=== PATIENT | male | born 1975 | race Caucasian/White ===

== ENCOUNTER 2020-12-16 08:53 | Emergency (ER) | payer OTHER ==
[2020-12-16 09:00] VITALS: RESP 18; TEMP 97.5
[2020-12-16] MEDS ORDERED: KETOROLAC 15 MG/ML 1 ML VIAL IVP STA (09:14)
[2020-12-16] MEDS ORDERED: SODIUM CHLORIDE 0.9% 1,000 ML IV STA (09:14)
[2020-12-16] MEDS ORDERED: LABETALOL 5 MG/ML VIAL MDV IVP STA (09:29)
--- NOTE | 2020-12-16 09:29 | ED ---
General Adult HPI - General Chief complaint: Abdominal Pain Stated complaint: diverticulitis Time Seen by Provider: 12/16/20 09:00 Source: patient, RN notes reviewed, old records reviewed Mode of arrival: ambulatory Limitations: no limitations - History of Present Illness Initial comments: This is a 45-year-old male presents emergency Department complaining of right lower quadrant abdominal pain. Patient states this started last night. Patient states she's had this multiple times before and has turned out to be diverticulitis in the past. Patient denies any fever chills per patient denies any vomiting. Patient denies any diarrhea. Patient states in the past she's waited too long to come in and when he finally comes in he has diverticular pa tient has to be admitted to the hospital. Patient states this time except the very beginning so he wanted to come in and get some antibiotics early. Patient also states he has high blood pressure he has medication is supposed to take but he has not taken it and does not have a primary medical care doctor to follow-up with. - Related Data Previous Rx's Medication Instructions Recorded Ciprofloxacin HCl [Cipro] 500 mg PO Q12HR #20 tablet 12/16/20 Lisinopril [Zestril] 10 mg PO DAILY #30 tab 12/16/20 metroNIDAZOLE [Flagyl] 500 mg PO Q8HR #30 tab 12/16/20 Allergies Allergy/AdvReac Type Severity Reaction Status Date / Time codeine AdvReac Unknown Verified 12/16/20 09:57 Review of Systems ROS Statement: Those systems with pertinent positive or pertinent negative responses have been documented in the HPI. ROS Other: All systems not noted in ROS Statement are negative. Past Medical History Past Medical History: Hypertension Additional Past Medical History / Comment(s): diverticulosis History of Any Multi-Drug Resistant Organisms: None Reported Past Surgical History: No Surgical Hx Reported Past Psychological History: No Psychological Hx Reported Smoking Status: Current every day smoker Past Alcohol Use History: Occasional Past Drug Use History: None Reported General Exam - General Exam Comments Initial Comments: GENERAL: Patient is well-developed and well-nourished. Patient is nontoxic and well- hydrated and is in mild distress. ENT: Neck is soft and supple. No significant lymphadenopathy is noted. Oropharynx is clear. Moist mucous membranes. Neck has full range of motion without eliciting any pain. EYES: The sclera were anicteric and conjunctiva were pink and moist. Extraocular movements were intact and pupils were equal round and reactive to light. Eyelids were unremarkable. PULMONARY: Unlabored respirations. Good breath sounds bilaterally. No audible rales rhonchi or wheezing was noted. CARDIOVASCULAR: There is a regular rate and rhythm without any murmurs gallops or rubs. ABDOMEN: Mild right lower quadrant abdominal pain SKIN: Skin is clear with no lesions or rashes and otherwise unremarkable. NEUROLOGIC: Patient is alert and oriented x3. Cranial nerves II through XII are grossly intact. Motor and sensory are also intact. Normal speech, volume and content. Symmetrical smile. MUSCULOSKELETAL: Normal extremities with adequate strength and full range of motion. LYMPHATICS: No significant lymphadenopathy is noted PSYCHIATRIC: Normal psychiatric evaluation. Limitations: no limitations Course Vital Signs 12/16/20 12/16/20 12/16/20 08:57 09:47 10:05 Temperature 97.5 F L Pulse Rate 127 H 98 86 Respiratory 18 18 18 Rate Blood Pressure 161/114 164/105 136/91 O2 Sat by Pulse 99 99 99 Oximetry 12/16/20 11:17 Temperature Pulse Rate 88 Respiratory 18 Rate Blood Pressure 140/89 O2 Sat by Pulse 99 Oximetry Medical Decision Making - Medical Decision Making EKG shows sinus tachycardia at 106 bpm MN interval 240 QRS is 82 QT interval 336 QTC is 446. Patient's EKG shows no ST segment elevation or depression. Computed tomography scan of the abdomen and pelvis shows no signs of diverticulitis. Patient does have an elevated white count patient states this is the same feeling he had when he had previous diverticulitis episodes and Cipro and Flagyl have helped in the past. I will back into reevaluate the patient he continued to have pain but it was slightly improved. Patient is taking his high blood pressure medications and follow-up with a primary medical care doctor or route service manager. - Lab Data Result diagrams: 12/16/20 09:17 12/16/20 09:17 Lab Results 12/16/20 12/16/20 12/16/20 Range/Units 09:17 09:17 09: WBC 16.9 H (3.8-10.6) k/uL RBC 5.26 (4.30-5.90) m/uL Hgb 15.6 (13.0-17.5) gm/dL Hct 44.9 (39.0-53.0) % MCV 85.3 (80.0-100.0) fL MCH 29.7 (25.0-35.0) pg MCHC 34.8 (31.0-37.0) g/dL RDW 13.1 (11.5-15.5) % Plt Count 181 (150-450) k/uL MPV 8.6 Neutrophils % 71 % Lymphocytes % 20 % Monocytes % 6 % Eosinophils % 1 % Basophils % 1 % Neutrophils # 12.0 H (1.3-7.7) k/uL Lymphocytes # 3.4 (1.0-4.8) k/uL Monocytes # 1.1 H (0-1.0) k/uL Eosinophils # 0.1 (0-0.7) k/uL Basophils # 0.1 (0-0.2) k/uL Sodium 139 (137-145) mmol/L Potassium 4.4 (3.5-5.1) mmol/L Chloride 107 (98-107) mmol/L Carbon Dioxide 22 (22-30) mmol/L Anion Gap 10 mmol/L BUN 19 (9-20) mg/dL Creatinine 0.98 (0.66-1.25) mg/dL Est GFR (CKD-EPI)AfAm >90 (>60 ml/min/1.73 sqM) Est GFR (CKD-EPI)NonAf >90 (>60 ml/min/1.73 sqM) Glucose 101 H (74-99) mg/dL Plasma Lactic Acid [place] (0.7-2.0) mmol/L Calcium 9.6 (8.4-10.2) mg/dL Total Bilirubin 0.7 (0.2-1.3) mg/dL AST 46 (17-59) U/L ALT 33 (4-49) U/L Alkaline Phosphatase 56 (38-126) U/L Total Protein 7.7 (6.3-8.2) g/dL Albumin 4.7 (3.5-5.0) g/dL Amylase 45 (30-110) U/L Lipase 55 (23-300) U/L Urine Color Light Yellow Urine Appearance Clear (Clear) Urine pH 5.0 (5.0-8.0) Ur Specific [place] 1.012 (1.001-1.035) Urine Protein Negative (Negative) Urine Glucose (UA) Negative (Negative) Urine Ketones Negative (Negative) Urine Blood Negative (Negative) Urine Nitrite Negative (Negative) Urine Bilirubin Negative (Negative) Urine Urobilinogen <2.0 (<2.0) mg/dL Ur Leukocyte Esterase Negative (Negative) 12/16/20 Range/Units 09:17 WBC (3.8-10.6) k/uL RBC (4.30-5.90) m/uL Hgb (13.0-17.5) gm/dL Hct (39.0-53.0) % MCV (80.0-100.0) fL MCH (25.0-35.0) pg MCHC (31.0-37.0) g/dL RDW (11.5-15.5) % Plt Count (150-450) k/uL MPV Neutrophils % % Lymphocytes % % Monocytes % % Eosinophils % % Basophils % % Neutrophils # (1.3-7.7) k/uL Lymphocytes # (1.0-4.8) k/uL Monocytes # (0-1.0) k/uL Eosinophils # (0-0.7) k/uL Basophils # (0-0.2) k/uL Sodium (137-145) mmol/L Potassium (3.5-5.1) mmol/L Chloride (98-107) mmol/L Carbon Dioxide (22-30) mmol/L Anion Gap mmol/L BUN (9-20) mg/dL Creatinine (0.66-1.25) mg/dL Est GFR (CKD-EPI)AfAm (>60 ml/min/1.73 sqM) Est GFR (CKD-EPI)NonAf (>60 ml/min/1.73 sqM) Glucose (74-99) mg/dL Plasma Lactic Acid [place] 1.6 (0.7-2.0) mmol/L Calcium (8.4-10.2) mg/dL Total Bilirubin (0.2-1.3) mg/dL AST (17-59) U/L ALT (4-49) U/L Alkaline Phosphatase (38-126) U/L Total Protein (6.3-8.2) g/dL Albumin (3.5-5.0) g/dL Amylase (30-110) U/L Lipase (23-300) U/L Urine Color Urine Appearance (Clear) Urine pH (5.0-8.0) Ur Specific [place] (1.001-1.035) Urine Protein (Negative) Urine Glucose (UA) (Negative) Urine Ketones (Negative) Urine Blood (Negative) Urine Nitrite (Negative) Urine Bilirubin (Negative) Urine Urobilinogen (<2.0) mg/dL Ur Leukocyte Esterase (Negative) Disposition Clinical Impression: Hypertensive urgency, Abdominal pain Disposition: HOME SELF-CARE Instructions (If sedation given, give patient instructions): Abdominal Pain (ED), Hypertension (ED) Additional Instructions: Patient is felt the primary medical care doctor or a route service manager. Patient she returns as any further abdominal pain. Prescriptions: Ciprofloxacin HCl [Cipro] 500 mg PO Q12HR #20 tablet metroNIDAZOLE [Flagyl] 500 mg PO Q8HR #30 tab Lisinopril [Zestril] 10 mg PO DAILY #30 tab Is patient prescribed a controlled substance at d/c from ED?: No Referrals: None,Stated [Primary Care Provider] - 1-2 days Time of Disposition: 11:46
[2020-12-16 09:41] LABS: Basophils # (A) 0.1 k/uL (0-0.2); Basophils % (A) 1 %; Eosinophils # (A) 0.1 k/uL (0-0.7); Eosinophils % (A) 1 %; HCT 44.9 % (39.0-53.0); HGB 15.6 gm/dL (13.0-17.5); Lymphocytes # (A) 3.4 k/uL (1.0-4.8); Lymphocytes % (A) 20 %; MCH 29.7 pg (25.0-35.0); MCHC 34.8 g/dL (31.0-37.0); MCV 85.3 fL (80.0-100.0); Mean Platelet Volume 8.6; Monocytes # (A) 1.1 k/uL (0-1.0); Monocytes % (A) 6 %; Neutrophils % (A) 71 %; Platelet Count 181 k/uL (150-450); RBC 5.26 m/uL (4.30-5.90); RDW 13.1 % (11.5-15.5); WBC 16.9 k/uL (3.8-10.6)
[2020-12-16 09:43] LABS: Appearance,Urine Clear (Clear); Bilirubin,Urine Negative (Negative); Blood,Urine Negative (Negative); Color,Urine Light Yellow; Glucose,Urine (UA) Negative (Negative); Ketones,Urine Negative (Negative); Leukocyte Esterase,Urine Negative (Negative); Nitrite,Urine Negative (Negative); Protein,Urine Negative (Negative); Specific Gravity,Urine 1.012 (1.001-1.035); Urobilinogen,Urine <2.0 mg/dL (<2.0)
[2020-12-16 09:59] LABS: ALT 33 U/L (4-49); AST 46 U/L (17-59); African American GFR (CKD) >90 (>60 ml/min/1.73 sqM); Albumin 4.7 g/dL (3.5-5.0); Alkaline Phosphatase 56 U/L (38-126); Amylase 45 U/L (30-110); Anion Gap 10 mmol/L; Blood Urea Nitrogen 19 mg/dL (9-20); Calcium 9.6 mg/dL (8.4-10.2); Carbon Dioxide 22 mmol/L (22-30); Chloride 107 mmol/L (98-107); Glucose 101 mg/dL (74-99); Lipase 55 U/L (23-300); Non-African American GFR(CKD) >90 (>60 ml/min/1.73 sqM); Potassium 4.4 mmol/L (3.5-5.1); Sodium 139 mmol/L (137-145); Total Bilirubin 0.7 mg/dL (0.2-1.3); Total Protein 7.7 g/dL (6.3-8.2)
--- NOTE | 2020-12-16 11:04 | CT ---
EXAMINATION TYPE: CT abdomen pelvis w con DATE OF EXAM: 12/16/2020 COMPARISON: 10/24/2012 HISTORY: abdominal pain, diarrhea CT DLP: 885.7 mGycm Automated exposure control for dose reduction was used. TECHNIQUE: Helical acquisition of images was performed from the lung bases through the pelvis. CONTRAST: Performed without Oral Contrast and with IV Contrast, patient injected with 100 mL of Isovue 300. FINDINGS: Lung bases are clear. There is a tiny low-density lesion within the liver which most likely represents an hemangioma. The gallbladder is normal and there is no gallstone, wall thickening, distention, or pericholecystic fluid. There is no biliary ductal dilatation. The pancreas spleen and adrenal glands are normal. The kidneys excrete contrast promptly and symmetrically and there is no solid renal mass or hydroneph rosis. There is no retroperitoneal adenopathy or hemorrhage in the caliber of the abdominal aorta is normal. The bowel loops are normal in caliber and there is no evidence of obstruction. There is diffuse diver ticulosis without CT evidence of diverticulitis. The wall the sigmoid colon appears thickened and thi s was an area of prior diverticulitis seen on the prior study dating back to 2012. There is no eviden ce of acute diverticulitis currently. There is no free intraperitoneal air or fluid. There is no pelvic mass, free fluid or adenopathy. The osseous structures are intact. IMPRESSION: Sigmoid colon wall appears thickened and there is diffuse diverticulosis. There is no evidence of acu te diverticulitis. Acute diverticulitis was seen in the sigmoid colon on the prior study dated 013. Currently, there is no acute intra-abdominal or pelvic abnormality.
[2020-12-16 11:53] VITALS: BP 133/87; PULSE 81
== END 2020-12-16 12:08 | disposition home or self-care (01) ==
LOC: EC 08:53
DX: I16.0 Hypertensive urgency (principal); R10.31 Right lower quadrant pain; I10 Essential (primary) hypertension; F17.200 Nicotine dependence, unspecified, uncomplicated; Z87.19 Personal history of other diseases of the digestive system
CPT/HCPCS: 36415; 93005; 80053; 82150; 83605; 83690; 85025; 81003; 74177; 99284; 96374; 96375; 96361 ×2; J1885; Q9967

== ENCOUNTER 2021-03-07 09:59 | Inpatient (IN) | payer BC, OTHER ==
[2021-03-07] MEDS ORDERED: PANTOPRAZOLE 40 MG/10 ML VIAL IVP STA (10:24)
[2021-03-07] MEDS ORDERED: SODIUM CHLORIDE 0.9% 1,000 ML IV STA (10:24)
[2021-03-07] MEDS ORDERED: HYDROmorphone 1 MG/ML 1 ML SYRINGE IVP STA (10:25)
--- NOTE | 2021-03-07 10:27 | ED ---
General Adult HPI - General Chief complaint: Abdominal Pain Stated complaint: abd pain Time Seen by Provider: 03/07/21 10:17 Source: patient, RN notes reviewed Mode of arrival: ambulatory Limitations: no limitations - History of Present Illness Initial comments: Patient is a pleasant 45-year-old male presenting to the emergency department with lower abdominal discomfort. Onset of symptoms was last night. Symptoms were mild last night however starting to become more severe this morning. No constipation or diarrhea. No nausea vomiting. No fevers. Patient does have history of similar symptoms previously associated with diverticulitis and previo usly has been hospitalized twice for this. Discomfort is mostly mid lower abdomen and left lower abdomen. Discomfort does increase with movement - Related Data Previous Rx's Medication Instructions Recorded Ciprofloxacin HCl [Cipro] 500 mg PO Q12HR #20 tablet 12/16/20 Lisinopril [Zestril] 10 mg PO DAILY #30 tab 12/16/20 metroNIDAZOLE [Flagyl] 500 mg PO Q8HR #30 tab 12/16/20 Allergies Allergy/AdvReac Type Severity Reaction Status Date / Time codeine Allergy Unknown Verified 03/07/21 10:50 Review of Systems ROS Statement: Those systems with pertinent positive or pertinent negative responses have been documented in the HPI. ROS Other: All systems not noted in ROS Statement are negative. Constitutional: Denies: fever Eyes: Denies: eye pain ENT: Denies: ear pain Respiratory: Denies: cough Cardiovascular: Denies: chest pain Endocrine: Denies: fatigue Gastrointestinal: Reports: as per HPI, abdominal pain. Denies: nausea, vomiting Genitourinary: Denies: dysuria Musculoskeletal: Denies: back pain Skin: Denies: rash Neurological: Denies: weakness Past Medical History Past Medical History: Hypertension Additional Past Medical History / Comment(s): diverticulosis History of Any Multi-Drug Resistant Organisms: None Reported Past Surgical History: No Surgical Hx Reported Past Psychological History: No Psychological Hx Reported Smoking Status: Current every day smoker Past Alcohol Use History: Occasional Past Drug Use History: None Reported General Exam Limitations: no limitations General appearance: alert, in no apparent distress Head exam: Present: normocephalic Eye exam: Present: normal appearance Neck exam: Present: normal inspection Respiratory exam: Present: normal lung sounds bilaterally Cardiovascular Exam: Present: regular rate, normal rhythm Expanded Peripheral pulses: 2+: Dorsalis Pedis (R), Dorsalis Pedis (L) GI/Abdominal exam: Present: soft, tenderness (Moderate superpubic tenderness, mild left lower quadrant tenderness), normal bowel sounds. Absent: distended, guarding, rebound, rigid, pulsatile mass Extremities exam: Present: normal inspection Neurological exam: Present: alert Psychiatric exam: Present: normal affect, normal mood Skin exam: Present: normal color Course Vital Signs 03/07/21 03/07/21 03/07/21 10:11 10:15 11:15 Temperature 98.4 F Pulse Rate 88 Respiratory 18 18 18 Rate Blood Pressure 123/87 O2 Sat by Pulse 96 Oximetry 03/07/21 12:00 Temperature Pulse Rate Respiratory 18 Rate Blood Pressure O2 Sat by Pulse Oximetry Medical Decision Making - Medical Decision Making Patient reevaluated and updated. Dr. Tejada has been paged for admission covering Dr. jose. Case was discussed with Dr. Simpson, who will admit. - Lab Data Result diagrams: 03/07/21 10:35 03/07/21 10:35 Lab Results 03/07/21 03/07/21 03/07/21 Range/Units 10:35 10:35 10:35 WBC 17.6 H (3.8-10.6) k/uL RBC 4.86 (4.30-5.90) m/uL Hgb 14.7 (13.0-17.5) gm/dL Hct 42.5 (39.0-53.0) % MCV 87.5 (80.0-100.0) fL MCH 30.2 (25.0-35.0) pg MCHC 34.5 (31.0-37.0) g/dL RDW 13.1 (11.5-15.5) % Plt Count 227 (150-450) k/uL MPV 9.1 Neutrophils % 74 % Lymphocytes % 16 % Monocytes % 7 % Eosinophils % 1 % Basophils % 1 % Neutrophils # 13.0 H (1.3-7.7) k/uL Lymphocytes # 2.9 (1.0-4.8) k/uL Monocytes # 1.3 H (0-1.0) k/uL Eosinophils # 0.1 (0-0.7) k/uL Basophils # 0.1 (0-0.2) k/uL PT 9.9 (9.0-12.0) sec INR 0.9 (<1.2) APTT 22.5 (22.0-30.0) sec Sodium (137-145) mmol/L Potassium (3.5-5.1) mmol/L Chloride (98-107) mmol/L Carbon Dioxide (22-30) mmol/L Anion Gap mmol/L BUN (9-20) mg/dL Creatinine (0.66-1.25) mg/dL Est GFR (CKD-EPI)AfAm (>60 ml/min/1.73 sqM) Est GFR (CKD-EPI)NonAf (>60 ml/min/1.73 sqM) Glucose (74-99) mg/dL Calcium (8.4-10.2) mg/dL Total Bilirubin (0.2-1.3) mg/dL AST (17-59) U/L ALT (4-49) U/L Alkaline Phosphatase (38-126) U/L Total Protein (6.3-8.2) g/dL Albumin (3.5-5.0) g/dL Amylase (30-110) U/L Lipase (23-300) U/L Urine Color Yellow Urine Appearance Clear (Clear) Urine pH 5.5 (5.0-8.0) Ur Specific [place] 1.016 (1.001-1.035) Urine Protein Negative (Negative) Urine Glucose (UA) Negative (Negative) Urine Ketones Trace H (Negative) Urine Blood Negative (Negative) Urine Nitrite Negative (Negative) Urine Bilirubin Negative (Negative) Urine Urobilinogen <2.0 (<2.0) mg/dL Ur Leukocyte Esterase Trace H (Negative) Urine RBC 1 (0-5) /hpf Urine WBC <1 (0-5) /hpf Urine Mucus Rare H (None) /hpf 03/07/21 Range/Units 10:35 WBC (3.8-10.6) k/uL RBC (4.30-5.90) m/uL Hgb (13.0-17.5) gm/dL Hct (39.0-53.0) % MCV (80.0-100.0) fL MCH (25.0-35.0) pg MCHC (31.0-37.0) g/dL RDW (11.5-15.5) % Plt Count (150-450) k/uL MPV Neutrophils % % Lymphocytes % % Monocytes % % Eosinophils % % Basophils % % Neutrophils # (1.3-7.7) k/uL Lymphocytes # (1.0-4.8) k/uL Monocytes # (0-1.0) k/uL Eosinophils # (0-0.7) k/uL Basophils # (0-0.2) k/uL PT (9.0-12.0) sec INR (<1.2) APTT (22.0-30.0) sec Sodium 138 (137-145) mmol/L Potassium 4.4 (3.5-5.1) mmol/L Chloride 105 (98-107) mmol/L Carbon Dioxide 25 (22-30) mmol/L Anion Gap 8 mmol/L BUN 15 (9-20) mg/dL Creatinine 0.83 (0.66-1.25) mg/dL Est GFR (CKD-EPI)AfAm >90 (>60 ml/min/1.73 sqM) Est GFR (CKD-EPI)NonAf >90 (>60 ml/min/1.73 sqM) Glucose 98 (74-99) mg/dL Calcium 9.6 (8.4-10.2) mg/dL Total Bilirubin 0.7 (0.2-1.3) mg/dL AST 25 (17-59) U/L ALT 19 (4-49) U/L Alkaline Phosphatase 54 (38-126) U/L Total Protein 6.9 (6.3-8.2) g/dL Albumin 4.2 (3.5-5.0) g/dL Amylase 41 (30-110) U/L Lipase 37 (23-300) U/L Urine Color Urine Appearance (Clear) Urine pH (5.0-8.0) Ur Specific [place] (1.001-1.035) Urine Protein (Negative) Urine Glucose (UA) (Negative) Urine Ketones (Negative) Urine Blood (Negative) Urine Nitrite (Negative) Urine Bilirubin (Negative) Urine Urobilinogen (<2.0) mg/dL Ur Leukocyte Esterase (Negative) Urine RBC (0-5) /hpf Urine WBC (0-5) /hpf Urine Mucus (None) /hpf - Radiology Data Radiology results: report reviewed (CT abdomen and pelvis shows moderate to severe yet uncomplicated diverticulitis) Disposition Clinical Impression: Diverticulitis Disposition: ADMITTED IP TO THIS HOSP Is patient prescribed a controlled substance at d/c from ED?: No Referrals: Elda Jose MD [Primary Care Provider] - 1-2 days Decision Time: 12:08
[2021-03-07 11:03] LABS: ALT 19 U/L (4-49); AST 25 U/L (17-59); African American GFR (CKD) >90 (>60 ml/min/1.73 sqM); Albumin 4.2 g/dL (3.5-5.0); Alkaline Phosphatase 54 U/L (38-126); Amylase 41 U/L (30-110); Anion Gap 8 mmol/L; Blood Urea Nitrogen 15 mg/dL (9-20); Calcium 9.6 mg/dL (8.4-10.2); Carbon Dioxide 25 mmol/L (22-30); Chloride 105 mmol/L (98-107); Glucose 98 mg/dL (74-99); Lipase 37 U/L (23-300); Non-African American GFR(CKD) >90 (>60 ml/min/1.73 sqM); Potassium 4.4 mmol/L (3.5-5.1); Sodium 138 mmol/L (137-145); Total Bilirubin 0.7 mg/dL (0.2-1.3); Total Protein 6.9 g/dL (6.3-8.2)
[2021-03-07 11:11] LABS: Appearance,Urine Clear (Clear); Bilirubin,Urine Negative (Negative); Blood,Urine Negative (Negative); Color,Urine Yellow; Glucose,Urine (UA) Negative (Negative); Ketones,Urine Trace (Negative); Leukocyte Esterase,Urine Trace (Negative); Mucus,Urine Rare /hpf; Nitrite,Urine Negative (Negative); PH, Urine 5.5 (5.0-8.0); Protein,Urine Negative (Negative); RBC,Urine 1 /hpf (0-5); Specific Gravity,Urine 1.016 (1.001-1.035); Urobilinogen,Urine <2.0 mg/dL (<2.0); WBC,Urine <1 /hpf (0-5)
[2021-03-07 11:13] LABS: INR 0.9 (<1.2); Partial Thromboplastin Time 22.5 sec (22.0-30.0); Prothrombin Time 9.9 sec (9.0-12.0)
[2021-03-07 11:15] LABS: Basophils # (A) 0.1 k/uL (0-0.2); Basophils % (A) 1 %; Eosinophils # (A) 0.1 k/uL (0-0.7); Eosinophils % (A) 1 %; HCT 42.5 % (39.0-53.0); HGB 14.7 gm/dL (13.0-17.5); Lymphocytes # (A) 2.9 k/uL (1.0-4.8); Lymphocytes % (A) 16 %; MCH 30.2 pg (25.0-35.0); MCHC 34.5 g/dL (31.0-37.0); MCV 87.5 fL (80.0-100.0); Mean Platelet Volume 9.1; Monocytes # (A) 1.3 k/uL (0-1.0); Monocytes % (A) 7 %; Neutrophils % (A) 74 %; Platelet Count 227 k/uL (150-450); RBC 4.86 m/uL (4.30-5.90); RDW 13.1 % (11.5-15.5); WBC 17.6 k/uL (3.8-10.6)
--- NOTE | 2021-03-07 11:54 | CT ---
EXAMINATION TYPE: CT abdomen pelvis w con DATE OF EXAM: 03/07/2021 COMPARISON: CT abdomen and pelvis December 16, 2020 and older study 2012 HISTORY: Abdominal pain CT DLP: 869.8 mGycm, Automated Exposure Control for Dose Reduction was Utilized. CONTRAST: CT scan of the abdomen and pelvis is performed without oral and with IV Contrast, patient injected wi th 100 mL of Isovue 300. FINDINGS: LUNG BASES: Dependent atelectasis. LIVER/GB: No significant abnormality is appreciated. PANCREAS: No significant abnormality is seen. SPLEEN: No significant abnormality is seen. ADRENALS: No significant abnormality is seen. KIDNEYS: No significant abnormality is seen. BOWEL: Slightly suboptimal evaluation of bowel without enteric contrast. No suspicious small or large bowel dilatation. Mild/moderate colonic fecal prominence right and transverse colon. Mild to moderat e wall thickening in the left colon extending into the sigmoid colon where there is more moderate wal l thickening proximal to mid segment. There are diverticula in the sigmoid colon. There is moderate i ll-defined fluid and fat stranding in the upper to mid pelvis just left of midline at site of diverti cular disease and moderate to severe wall thickening on current study. No free air. No well-formed fl uid collection or drainable abscess. PROSTATE/SEMINAL VESICLES: No gross abnormality seen. LYMPH NODES: No greater than 1cm abdominal or pelvic lymph nodes are appreciated. OSSEOUS STRUCTURES: No significant abnormality is seen. OTHER: No significant additional abnormality is seen. IMPRESSION: Fairly moderate to borderline severe but uncomplicated acute diverticulitis involving the proximal to mid sigmoid colon over the mid pelvis just left of midline.
[2021-03-07] MEDS ORDERED: NALOXONE 0.4 MG/ML 1 ML VIAL IV PRN (12:11)
[2021-03-07] MEDS ORDERED: HYDROmorphone 1 MG/ML 1 ML SYRINGE IVP PRN (12:11)
[2021-03-07] MEDS ORDERED: AMPICILLIN-SULBACTAM 3 GM in SODIUM CHLORIDE 0.9% 100 ML IVPB STA (12:13)
[2021-03-07] MEDS ORDERED: hydrALAZINE HCL 20 MG/ML 1 ML VIAL IVP PRN (12:43)
--- NOTE | 2021-03-07 12:44 | P.HPIM ---
History of Present Illness This is a pleasant 45 years old male with past medical history of hypertension, diverticulosis and diverticulitis. Presents with abdominal pain since yesterday in the lower abdomen felt likely that comes and goes about 8/10 in severity, non-radiating. Associated with some loose bowel movement, twice yesterday, but no vomiting or fever Afebrile on admission some vitals are stable. He has mild leukocytosis at 17.6 K rest of the CBC, BMP, INR and liver enzymes are unremarkable. Urinalysis is negative for infection CT of the abdomen and pelvis with contrast showing moderate borderline severe but and complicated acute diverticulitis involving the proximal to mid sigmoid colon over the mid pelvis just left of midline In the emergency room patient was started on Unasyn, Dilaudid and normal saline at 75 mL/h Review of Systems CONSTITUTIONAL: No fever, no malaise, no fatigue. HEENT: No recent visual problems or hearing problems. Denied any sore throat. CARDIOVASCULAR: No orthopnea, PND, no palpitations, no syncope. PULMONARY: No shortness of breath, no cough, no hemoptysis. GASTROINTESTINAL: no nausea, no vomiting, Normoactive bowel sounds. NEUROLOGICAL: No headaches, no weakness, no numbness. HEMATOLOGICAL: Denies any bleeding or petechiae. GENITOURINARY: Denies any burning micturition, frequency, or urgency. MUSCULOSKELETAL/RHEUMATOLOGICAL: Denies any joint pain, swelling, or any muscle pain. ENDOCRINE: Denies any polyuria or polydipsia. Past Medical History Past Medical History: Hypertension Additional Past Medical History / Comment(s): diverticulosis History of Any Multi-Drug Resistant Organisms: None Reported Past Surgical History: No Surgical Hx Reported Past Psychological History: No Psychological Hx Reported Smoking Status: Current every day smoker Past Alcohol Use History: Occasional Past Drug Use History: None Reported Medications and Allergies Home Medications Medication Instructions Recorded Confirmed Type Ciprofloxacin HCl [Cipro] 500 mg PO Q12HR #20 tablet 12/16/20 03/07/21 Rx Lisinopril [Zestril] 10 mg PO DAILY #30 tab 12/16/20 03/07/21 Rx metroNIDAZOLE [Flagyl] 500 mg PO Q8HR #30 tab 12/16/20 03/07/21 Rx Allergies Allergy/AdvReac Type Severity Reaction Status Date / Time codeine Allergy Unknown Verified 03/07/21 10:50 Physical Exam Vitals: Vital Signs Temp Pulse Resp BP Pulse Ox 03/07/21 12:00 18 03/07/21 11:15 18 03/07/21 10:15 18 03/07/21 10:11 98.4 F 88 18 123/87 96 Intake and Output 03/06/21 03/07/21 03/07/21 22:59 06:59 14:59 Other: Weight 81.647 kg GENERAL: The patient is alert and oriented x3, not in any acute distress. Well developed, well nourished. HEENT: Pupils are round and equally reacting to light. EOMI. No scleral icterus. No conjunctival pallor. Normocephalic, atraumatic. No pharyngeal erythema. No thyromegaly. CARDIOVASCULAR: S1 and S2 present. No murmurs, rubs, or gallops. PULMONARY: Chest is clear to auscultation, no wheezing or crackles. -ABDOMEN: Soft, bilateral lower quadrant tenderness, more on the right side,nondistended, normoactive bowel sounds. No palpable organomegaly. MUSCULOSKELETAL: No joint swelling or deformity. EXTREMITIES: No cyanosis, clubbing, or pedal edema. NEUROLOGICAL: Gross neurological examination did not reveal any focal deficits. SKIN: No rashes. No petechiae Results CBC & Chem 7: 03/07/21 10:35 03/07/21 10:35 Labs: Abnormal Lab Results - Last 24 Hours (Table) 03/07/21 03/07/21 Range/Units 10:35 10:35 WBC 17.6 H (3.8-10.6) k/uL Neutrophils # 13.0 H (1.3-7.7) k/uL Monocytes # 1.3 H (0-1.0) k/uL Urine Ketones Trace H (Negative) Ur Leukocyte Esterase Trace H (Negative) Urine Mucus Rare H (None) /hpf Assessment and Plan Assessment: Moderate To severe Acute diverticulitis Nicotine dependence Mild alcohol abuse at-risk of alcohol withdrawal Hypertension Plan: This is a pleasant 45 years old male who presents with recurrent diverticulitis. Continue with antibiotic . We'll change his Unasyn to Zosyn bowel rest and IV fluids and pain medication Surgical team consult [place]-less than when necessary Labs and medication were reviewed.. Continue same treatment. Continue with symptomatic treatment. Resume home medication. Monitor lytes and vitals. DVT and GI prophylaxis. Further recommendations depends on the clinical course of the patient DVT prophylaxis: Subcutaneous heparin GI Prophylaxis: Pepcid Prognosis is guarded
[2021-03-07] MEDS: SODIUM CHLORIDE 0.9% 1,000 ML IV SCH (13:33)
--- NOTE | 2021-03-07 15:26 | P.GSCN ---
History of Present Illness Consult date: 03/07/21 History of present illness: CHIEF COMPLAINT: Abdominal pain HISTORY OF PRESENT ILLNESS: This is a 45-year-old male with a known history of diverticulosis, hypertension and nicotine dependence. Patient presents to the hospital for left lower quadrant abdominal pain. His symptoms started last night. His symptoms continued to worsen and became severe this morning. He denies any constipation or diarrhea. Denies any nausea or vomiting. Denies any fevers. Patient has had similar symptoms previously with diverticulitis and had required hospitalization twice. Patient seen and examined in ER with Dr. man. PAST MEDICAL HISTORY: See list. PAST SURGICAL HISTORY: See list. MEDICATIONS: See list. ALLERGIES: See list. SOCIAL HISTORY: No illicit drug use. REVIEW OF SYSTEMS: CONSTITUTIONAL: Denies fever or chills. HEENT: Denies blurred vision, vision changes, or eye pain. Denies hemoptysis CARDIOVASCULAR: Denies chest pain or pressure. RESPIRATORY: No shortness of breath. GASTROINTESTINAL: See HPI for pertinent findings HEMATOLOGIC: Denies bleeding disorders. GENITOURINARY: Denies any blood in urine or increased urinary frequency. SKIN: Denies pruitis. Denies rash. PHYSICAL EXAM: VITAL SIGNS: Reviewed GENERAL: Well-developed in no acute distress. HEENT: No sclera icterus. Extraocular movements grossly intact. Moist buccal mucosa. Head is atraumatic, normocephalic. No nasal drainage. ABDOMEN: Soft. Nondistended. Left lower quadrant tenderness NEUROLOGIC: Alert and oriented. Cranial nerves II through XII grossly intact. LABORATORY DATA: WBC 17.16 1114.7 INR 0.9 creatinine 0.83 IMAGING: Computed tomography scan abdomen and pelvis fairly moderate to borderline severe but uncomplicated acute diverticulitis involving the proximal to sigmoid colon over the mid pelvis just left to midline ASSESSMENT: 1. Moderate to severe uncomplicated acute diverticulitis involving the proximal to mid sigmoid colon PLAN: -Keep patient nothing by mouth -Continue antibiotics -Recommend conservative management -No surgical intervention planned at this time -Continue pain medication as needed -Continue GI and DVT prophylaxis Physician Logging Worker note has been reviewed by physician. Signing provider agrees with the documented findings, assessment, and plan of care. Past Medical History Past Medical History: Hypertension Additional Past Medical History / Comment(s): diverticulosis History of Any Multi-Drug Resistant Organisms: None Reported Past Surgical History: No Surgical Hx Reported Past Psychological History: No Psychological Hx Reported Smoking Status: Current every day smoker Past Alcohol Use History: Occasional Past Drug Use History: None Reported Medications and Allergies Home Medications Medication Instructions Recorded Confirmed Type Ciprofloxacin HCl [Cipro] 500 mg PO Q12HR #20 tablet 12/16/20 03/07/21 Rx Lisinopril [Zestril] 10 mg PO DAILY #30 tab 12/16/20 03/07/21 Rx metroNIDAZOLE [Flagyl] 500 mg PO Q8HR #30 tab 12/16/20 03/07/21 Rx Allergies Allergy/AdvReac Type Severity Reaction Status Date / Time codeine Allergy Unknown Verified 03/07/21 10:50 Surgical - Exam Vital Signs Temp Pulse Resp BP Pulse Ox 98.4 F 88 18 123/87 96 03/07/21 10:11 03/07/21 10:11 03/07/21 10:11 03/07/21 10:11 03/07/21 10:11 Results - Labs 03/07/21 10:35 03/07/21 10:35 Abnormal Lab Results - Last 24 Hours (Table) 03/07/21 03/07/21 Range/Units 10:35 10:35 WBC 17.6 H (3.8-10.6) k/uL Neutrophils # 13.0 H (1.3-7.7) k/uL Monocytes # 1.3 H (0-1.0) k/uL Urine Ketones Trace H (Negative) Ur Leukocyte Esterase Trace H (Negative) Urine Mucus Rare H (None) /hpf Diabetes panel 03/07/21 Range/Units 10:35 Sodium 138 (137-145) mmol/L Potassium 4.4 (3.5-5.1) mmol/L Chloride 105 (98-107) mmol/L Carbon Dioxide 25 (22-30) mmol/L BUN 15 (9-20) mg/dL Creatinine 0.83 (0.66-1.25) mg/dL Glucose 98 (74-99) mg/dL Calcium 9.6 (8.4-10.2) mg/dL AST 25 (17-59) U/L ALT 19 (4-49) U/L Alkaline Phosphatase 54 (38-126) U/L Total Protein 6.9 (6.3-8.2) g/dL Albumin 4.2 (3.5-5.0) g/dL Calcium panel 03/07/21 Range/Units 10:35 Calcium 9.6 (8.4-10.2) mg/dL Albumin 4.2 (3.5-5.0) g/dL Pituitary panel 03/07/21 Range/Units 10:35 Sodium 138 (137-145) mmol/L Potassium 4.4 (3.5-5.1) mmol/L Chloride 105 (98-107) mmol/L Carbon Dioxide 25 (22-30) mmol/L BUN 15 (9-20) mg/dL Creatinine 0.83 (0.66-1.25) mg/dL Glucose 98 (74-99) mg/dL Calcium 9.6 (8.4-10.2) mg/dL Adrenal panel 03/07/21 Range/Units 10:35 Sodium 138 (137-145) mmol/L Potassium 4.4 (3.5-5.1) mmol/L Chloride 105 (98-107) mmol/L Carbon Dioxide 25 (22-30) mmol/L BUN 15 (9-20) mg/dL Creatinine 0.83 (0.66-1.25) mg/dL Glucose 98 (74-99) mg/dL Calcium 9.6 (8.4-10.2) mg/dL Total Bilirubin 0.7 (0.2-1.3) mg/dL AST 25 (17-59) U/L ALT 19 (4-49) U/L Alkaline Phosphatase 54 (38-126) U/L Total Protein 6.9 (6.3-8.2) g/dL Albumin 4.2 (3.5-5.0) g/dL
[2021-03-07] MEDS: PIPERACILLIN-TAZOBACTAM 3.375 GM in SODIUM CHLORIDE 0.9% 100 ML IVPB SCH (16:37)
[2021-03-07] MEDS: HYDROmorphone 0.5 MG/0.5 ML SYRINGE IVP PRN ×2 (16:44→19:47)
[2021-03-07] MEDS ORDERED: AMPICILLIN-SULBACTAM 1.5 GM in SODIUM CHLORIDE 0.9% 50 ML IVPB SCH (18:00)
[2021-03-07] MEDS: FAMOTIDINE 20 MG/2 ML VIAL IV SCH (21:54)
[2021-03-07] MEDS: HEPARIN SODIUM,PORCINE/PF 5,000 UNIT/0.5 ML SYRINGE SQ SCH (21:59)
[2021-03-08] MEDS: PIPERACILLIN-TAZOBACTAM 3.375 GM in SODIUM CHLORIDE 0.9% 100 ML IVPB SCH ×3 (00:24→16:23)
[2021-03-08] MEDS: SODIUM CHLORIDE 0.9% 1,000 ML IV SCH ×2 (00:25→16:22)
[2021-03-08] MEDS: HYDROmorphone 0.5 MG/0.5 ML SYRINGE IVP PRN ×4 (00:33→19:33)
[2021-03-08] MEDS: PANTOPRAZOLE 40 MG/10 ML VIAL IV SCH (09:29)
[2021-03-08] MEDS: FAMOTIDINE 20 MG/2 ML VIAL IV SCH ×2 (09:30→20:34)
[2021-03-08] MEDS: HEPARIN SODIUM,PORCINE/PF 5,000 UNIT/0.5 ML SYRINGE SQ SCH ×2 (09:38→19:32)
[2021-03-08 10:01] LABS: Basophils # (A) 0.06 X 10*3/uL (0.00-0.10); Basophils % (A) 0.6 %; Eosinophils # (A) 0.16 X 10*3/uL (0.04-0.35); Eosinophils % (A) 1.6 %; HCT 40.6 % (39.6-50.0); HGB 13.5 g/dL (13.0-17.0); Lymphocytes # (A) 3.13 X 10*3/uL (0.90-5.00); Lymphocytes % (A) 30.4 %; MCH 30.1 pg (27.0-32.0); MCHC 33.3 g/dL (32.0-37.0); MCV 90.4 fL (80.0-97.0); Mean Platelet Volume 11.8 fL (9.5-12.2); Monocytes # (A) 0.84 X 10*3/uL (0.20-1.00); Monocytes % (A) 8.2 %; Neutrophils # (A) 6.06 X 10*3/uL (1.80-7.70); Neutrophils % (A) 58.8 %; Platelet Count 206 X 10*3/uL (140-440); RBC 4.49 X 10*6/uL (4.40-5.60); RDW 13.4 % (11.5-14.5); WBC 10.29 X 10*3/uL (4.50-10.00)
[2021-03-08 10:47] LABS: African American GFR (CKD) 105.6 (60.0-200.0); Anion Gap 10.7 mmol/L (4.00-12.00); Calcium 8.9 mg/dL (8.7-10.3); Carbon Dioxide 26.3 mmol/L (21.6-31.8); Non-African American GFR(CKD) 91.1 (60.0-200.0); Potassium 4.1 mmol/L (3.5-5.5)
--- NOTE | 2021-03-08 12:51 | P.PN ---
Subjective Progress Note Date: 03/08/21 CHIEF COMPLAINT: Diverticulitis HISTORY OF PRESENT ILLNESS: Patient reports decrease in his abdominal pain. His pain yesterday he was rating a 9 out of 10 is now down to 2 out of 10. He is passing gas. Denies any nausea vomiting. He is currently nothing by mouth. His afebrile. White count has decreased from 17-10.29 PHYSICAL EXAM: VITAL SIGNS: Reviewed. GENERAL: Well-developed in no acute distress. HEENT: No sclera icterus. Extraocular movements grossly intact. Moist buccal mucosa. Head is atraumatic, normocephalic. ABDOMEN: Soft. Nondistended. Tenderness with palpation of the lower abdomen NEUROLOGIC: Alert and oriented. Cranial nerves II through XII grossly intact. ASSESSMENT: 1. Moderate to severe uncomplicated acute diverticulitis involving the proximal to mid sigmoid colon PLAN: -Advance diet to full liquids -Possible discharge home tomorrow -Continue antibiotics -Recommend conservative management -No surgical intervention planned -Continue pain medication as needed -Continue GI and DVT prophylaxis Physician National Flatbed Truck Driver note has been reviewed by physician. Signing provider agrees with the documented findings, assessment, and plan of care. Objective - Vital Signs Vital signs: Vital Signs Temp 98.2 F 03/08/21 08:13 Pulse 79 03/08/21 08:13 Resp 16 03/08/21 08:13 BP 98/63 03/08/21 08:13 Pulse Ox 94 L 03/08/21 08:13 Intake & Output 03/07/21 03/08/21 03/08/21 18:59 06:59 18:59 Weight 81.647 kg 81.647 kg Other: Voiding Method Toilet Toilet # Voids 1 - Labs CBC & Chem 7: 03/08/21 05:24 03/08/21 05:24 Labs: Abnormal Lab Results - Last 24 Hours (Table) 03/08/21 Range/Units 05:24 WBC 10.29 H (4.50-10.00) X 10*3/uL
--- NOTE | 2021-03-08 20:13 | P.PN ---
Subjective This is a pleasant 45 years old male with past medical history of hypertension, diverticulosis and diverticulitis. Presents with abdominal pain since yesterday in the lower abdomen felt likely that comes and goes about 8/10 in severity, non-radiating. Associated with some loose bowel movement, twice yesterday, but no vomiting or fever Afebrile on admission some vitals are stable. He has mild leukocytosis at 17.6 K rest of the CBC, BMP, INR and liver enzymes are unremarkable. Urinalysis is negative for infection CT of the abdomen and pelvis with contrast showing moderate borderline severe but and complicated acute diverticulitis involving the proximal to mid sigmoid colon over the mid pelvis just left of midline In the emergency room patient was started on Unasyn, Dilaudid and normal saline at 75 mL/h Objective - Vital Signs Vital signs: Vital Signs Temp 97.6 F 03/08/21 14:00 Pulse 74 03/08/21 14:00 Resp 16 03/08/21 14:00 BP 102/62 03/08/21 14:00 Pulse Ox 97 03/08/21 14:00 Intake & Output 03/07/21 03/08/21 03/08/21 18:59 06:59 18:59 Weight 81.647 kg 81.647 kg Other: Voiding Method Toilet Toilet # Voids 1 - Exam GENERAL: The patient is alert and oriented x3, not in any acute distress. Well developed, well nourished. HEENT: Pupils are round and equally reacting to light. EOMI. No scleral icterus. No conjunctival pallor. Normocephalic, atraumatic. No pharyngeal erythema. No thyromegaly. CARDIOVASCULAR: S1 and S2 present. No murmurs, rubs, or gallops. PULMONARY: Chest is clear to auscultation, no wheezing or crackles. -ABDOMEN: Soft, mild lower abdominal tenderness, nondistended, normoactive bowel sounds. No palpable organomegaly. MUSCULOSKELETAL: No joint swelling or deformity. EXTREMITIES: No cyanosis, clubbing, or pedal edema. NEUROLOGICAL: Gross neurological examination did not reveal any focal deficits. SKIN: No rashes. no petechiae. - Labs CBC & Chem 7: 03/08/21 05:24 03/08/21 05:24 Labs: Abnormal Lab Results - Last 24 Hours (Table) 03/08/21 Range/Units 05:24 WBC 10.29 H (4.50-10.00) X 10*3/uL Assessment and Plan Assessment: Moderate To severe Acute diverticulitis Nicotine dependence Mild alcohol abuse at-risk of alcohol withdrawal Hypertension Plan: This is a pleasant 45 years old male who presents with recurrent diverticulitis. Continue with antibiotic . We'll change his Unasyn to Zosyn bowel rest and IV fluids and pain medication Surgical team consult Advance diet to liquids diet Labs and medication were reviewed.. Continue same treatment. Continue with symptomatic treatment. Resume home medication. Monitor lytes and vitals. DVT and GI prophylaxis. Further recommendations depends on the clinical course of the patient DVT prophylaxis: Subcutaneous heparin GI Prophylaxis: Pepcid
[2021-03-09] MEDS: HYDROmorphone 0.5 MG/0.5 ML SYRINGE IVP PRN ×2 (00:59→08:00)
[2021-03-09] MEDS: PIPERACILLIN-TAZOBACTAM 3.375 GM in SODIUM CHLORIDE 0.9% 100 ML IVPB SCH ×2 (00:59→08:00)
[2021-03-09] MEDS: SODIUM CHLORIDE 0.9% 1,000 ML IV SCH (05:41)
[2021-03-09 07:33] VITALS: BP 147/81; PULSE 48; RESP 18; TEMP 98.1
[2021-03-09] MEDS: FAMOTIDINE 20 MG/2 ML VIAL IV SCH (08:00)
[2021-03-09] MEDS: PANTOPRAZOLE 40 MG/10 ML VIAL IV SCH (08:00)
[2021-03-09] MEDS: HEPARIN SODIUM,PORCINE/PF 5,000 UNIT/0.5 ML SYRINGE SQ SCH (08:01)
[2021-03-09 09:33] LABS: Basophils # (A) 0.08 X 10*3/uL (0.00-0.10); Basophils % (A) 0.8 %; Eosinophils # (A) 0.21 X 10*3/uL (0.04-0.35); HCT 41.4 % (39.6-50.0); HGB 13.8 g/dL (13.0-17.0); Lymphocytes # (A) 3.51 X 10*3/uL (0.90-5.00); Lymphocytes % (A) 33.4 %; MCH 29.5 pg (27.0-32.0); MCHC 33.3 g/dL (32.0-37.0); MCV 88.5 fL (80.0-97.0); Mean Platelet Volume 11.5 fL (9.5-12.2); Monocytes # (A) 0.76 X 10*3/uL (0.20-1.00); Monocytes % (A) 7.2 %; Neutrophils % (A) 56.2 %; Platelet Count 223 X 10*3/uL (140-440); RBC 4.68 X 10*6/uL (4.40-5.60); RDW 13.2 % (11.5-14.5)
--- NOTE | 2021-03-09 11:34 | P.PN ---
Subjective Progress Note Date: 03/09/21 CHIEF COMPLAINT: Diverticulitis HISTORY OF PRESENT ILLNESS: Patient is feeling better. His pain has improved greatly. He tolerated the full liquid diet. He denies any nausea or vomiting. He is having bowel movements. Reports no blood in his stools. He is afebrile. WBC is 10.50 hemoglobin 13.8 PHYSICAL EXAM: VITAL SIGNS: Reviewed. GENERAL: Well-developed in no acute distress. HEENT: No sclera icterus. Extraocular movements grossly intact. Moist buccal mucosa. Head is atraumatic, normocephalic. ABDOMEN: Soft. Nondistended. Minimal tenderness lower abdomen NEUROLOGIC: Alert and oriented. Cranial nerves II through XII grossly intact. ASSESSMENT: 1. Moderate to severe uncomplicated acute diverticulitis involving the proximal to mid sigmoid colon PLAN: -Patient is stable for discharge from surgical standpoint -Patient to continue antibiotics, Levaquin and Flagyl after discharge -Patient is to continue full liquid diet for 2 days and then advance to regular diet Physician Medical Referral Coordinator note has been reviewed by physician. Signing provider agrees with the documented findings, assessment, and plan of care. Objective - Vital Signs Vital signs: Vital Signs Temp 98.1 F 03/09/21 07:31 Pulse 48 L 03/09/21 07:31 Resp 18 03/09/21 07:45 BP 147/81 03/09/21 07:31 Pulse Ox 99 03/09/21 07:31 Intake & Output 03/08/21 03/09/21 03/09/21 18:59 06:59 18:59 Intake Total 900 700 Balance 900 700 Intake: IV 900 Sodium Chloride 0.9% 1, 900 000 ml @ 75 mls/hr IV . [id number] JESSICA Rx#:[id number] Intake, IV Titration 700 Amount Piperacillin-Tazobactam 3 100 .375 gm In Sodium Chloride 0.9% 100 ml @ 25 mls/hr IVPB Q8HR JESSICA Rx# :[id number] Sodium Chloride 0.9% 1, 600 000 ml @ 75 mls/hr IV . [id number] JESSICA Rx#:[id number] Other: Voiding Method Toilet Toilet Toilet # Voids 2 - Labs CBC & Chem 7: 03/09/21 05:17 03/08/21 05:24 Labs: Abnormal Lab Results - Last 24 Hours (Table) 03/09/21 Range/Units 05:17 WBC 10.50 H (4.50-10.00) X 10*3/uL
== END 2021-03-09 14:19 | disposition home or self-care (01) | DRG 392 ==
LOC: EC 09:59 → OBSVTOIN 12:12 → 4SSUR 12:12
PROVIDERS: ADMIT Hospitalist; ATTEND Hospitalist
DX: K57.92 Diverticulitis of intestine, part unspecified, without perforation or abscess without bleeding (principal); F10.10 Alcohol abuse, uncomplicated; F17.200 Nicotine dependence, unspecified, uncomplicated; I10 Essential (primary) hypertension; Z79.899 Other long term (current) drug therapy
CPT/HCPCS: 36415; 74177; 80048; 80053; 81001; 82150; 83690; 85025; 85610; 85730; 96361; 96374; 96375; 99285

== ENCOUNTER 2021-04-06 09:07 | Day surgery (SDC) | payer BC ==
[2021-04-05 08:53] VITALS: BMI 26.6
[~2021-04-06 09:07] MED LIST: LACTATED RINGERS 1,000 ML IV SCH; LIDOCAINE 1% (10MG/ML) FOR IV START INTRADERMA PRN; MIDAZOLAM 2 MG/2 ML VIAL IV PRN
[2021-04-06 09:38] VITALS: TEMP 98.5
[2021-04-06] MEDS ORDERED: PROPOFOL 10 MG/ML 20 ML VIAL IV ONE (11:13)
--- NOTE | 2021-04-06 11:14 | P.GSHP ---
History of Present Illness H&P Date: 04/06/21 Chief Complaint: Diverticulitis Is a 45-year-old male who presents today for colonoscopy. He's a previous history of diverticulitis. Past Medical History Past Medical History: Hypertension Additional Past Medical History / Comment(s): diverticulosis History of Any Multi-Drug Resistant Organisms: None Reported Past Surgical History: No Surgical Hx Reported Past Anesthesia/Blood Transfusion Reactions: No Reported Reaction Smoking Status: Current every day smoker - Past Family History Mother Family Medical History: No Reported History Medications and Allergies Home Medications Medication Instructions Recorded Confirmed Type Lisinopril [Zestril] 10 mg PO DAILY #30 tab 12/16/20 04/05/21 Rx HYDROcodone/APAP 7.5-325MG [[place] 1 tab PO Q6HR PRN 04/05/21 04/05/21 History 7.5-325] Allergies Allergy/AdvReac Type Severity Reaction Status Date / Time codeine Allergy Unknown Verified 04/06/21 09:23 Childhood Surgical - Exam Vital Signs Temp Pulse Resp BP Pulse Ox 98.5 F 72 15 149/87 98 04/06/21 09:34 04/06/21 09:34 04/06/21 09:34 04/06/21 09:34 04/06/21 09:34 - General well developed, well nourished, no distress - Eyes PERRL - ENT normal pinna - Neck no masses - Respiratory normal expansion - Cardiovascular Rhythm: regular - Abdomen Abdomen: soft, non tender Assessment and Plan Assessment: Diverticula is. We'll perform colonoscopy
--- NOTE | 2021-04-06 11:34 | P.OP ---
Date of Procedure: 04/06/21 Preoperative Diagnosis: Diverticulitis Postoperative Diagnosis: Diverticulosis of sigmoid colon Procedure(s) Performed: Colonoscopy Anesthesia: MAC Surgeon: Pedro Joseph Pathology: none sent Condition: stable Disposition: PACU Description of Procedure: The patient's placed on the endoscopy table in the lateral position. He received IV sedation. Digital rectal exam was performed which revealed no abnormalities. Flexible colonoscope was then placed patient anus and passed throughout the entire colon. The ileocecal valve was visualized. The cecum, ascending transverse colon. The descending and sigmoid diverticulosis. The sigmoid colon appeared to be scarred previous diverticulitis. Scope was brought back the rectum this appeared normal. Scope brought back from the patient.
[2021-04-06 11:47] VITALS: RESP 16
[2021-04-06 12:03] VITALS: BP 122/74; PULSE 68
== END 2021-04-06 12:36 | disposition home or self-care (01) ==
LOC: ORWHC2ENDO 09:07
PROVIDERS: ATTEND Surgery
DX: K57.90 Diverticulosis of intestine, part unspecified, without perforation or abscess without bleeding (principal); I10 Essential (primary) hypertension; F17.210 Nicotine dependence, cigarettes, uncomplicated; Z79.899 Other long term (current) drug therapy; Z88.5 Allergy status to narcotic agent
CPT/HCPCS: 45378; J2704

== ENCOUNTER 2022-10-12 10:44 | Emergency (ER) | payer OTHER ==
[2022-10-12] MEDS ORDERED: MORPHINE SULFATE 4 MG/ML SYRINGE IVP STA (11:08)
--- NOTE | 2022-10-12 11:09 | ED ---
Abdominal Pain HPI - General Chief Complaint: Abdominal Pain Stated Complaint: Abd Pain Time Seen by Provider: 10/12/22 10:55 Source: patient, RN notes reviewed Mode of arrival: ambulatory Limitations: no limitations - History of Present Illness Initial Comments: Patient is a 47 her old male presenting to the emergency room with complaints of lower abdominal pain ongoing for approximately 3 days with an increase in intensity over the last 24 hours. He reports one episode of diarrhea. He denies any nausea or vomiting. He reports that he occasionally has blood in his stool but has not had any blood in his stool recently. He has a known history of diverticulosis with multiple diverticulitis flares. He denies any chest pain, shortness of breath, urinary frequency, dysuria, altered mental status, headache, dizziness, fevers or chills. In addition to his diverticulosis history his past medical history significant for hypertension. - Related Data Previous Rx's Medication Instructions Recorded Ciprofloxacin HCl [Cipro] 500 mg PO Q12HR 7 Days #14 tab 10/12/22 metroNIDAZOLE [Flagyl] 500 mg PO TID 7 Days #21 tab 10/12/22 Allergies Allergy/AdvReac Type Severity Reaction Status Date / Time codeine Allergy Unknown Verified 10/12/22 12:07 Childhood Review of Systems ROS Statement: Those systems with pertinent positive or pertinent negative responses have been documented in the HPI. ROS Other: All systems not noted in ROS Statement are negative. Past Medical History Past Medical History: Hypertension Additional Past Medical History / Comment(s): diverticulosis History of Any Multi-Drug Resistant Organisms: None Reported Past Surgical History: No Surgical Hx Reported Past Anesthesia/Blood Transfusion Reactions: No Reported Reaction Past Psychological History: No Psychological Hx Reported Smoking Status: Current every day smoker Past Alcohol Use History: None Reported Past Drug Use History: None Reported - Past Family History Mother Family Medical History: No Reported History General Exam - General Exam Comments Initial Comments: GENERAL: No acute distress, well developed, well nourished. HEENT: Normocephalic, atraumatic. Pupils equal, round, reactive to light. Moist mucous membranes. LUNGS: No respiratory distress. Clear to auscultation, no adventitious sounds, no use of accessory muscles. HEART: Regular rate and rhythm without murmur, rub, or gallop. ABDOMEN: Normal bowel sounds. Soft, non-distended. Bilateral lower quadrant tenderness worse to right lower quadrant than left. BACK: Normal inspection. EXTREMITIES: No edema. No tenderness. Moves all extremities. NEUROLOGIC: Alert & oriented x 3. CN II-XII grossly intact. PSYCHIATRIC: Normal affect and behavior. DERMATOLOGIC: Skin intact, without rashes or lesions noted. Limitations: no limitations Course Vital Signs 10/12/22 10/12/22 10/12/22 10:48 11:34 12:49 Temperature 98 F 98.6 F Pulse Rate 88 75 76 Respiratory 20 18 18 Rate Blood Pressure 113/80 126/95 116/78 O2 Sat by Pulse 99 97 98 Oximetry 10/12/22 13:39 Temperature 98.5 F Pulse Rate 77 Respiratory 18 Rate Blood Pressure 120/78 O2 Sat by Pulse 98 Oximetry Medical Decision Making - Medical Decision Making Was pt. sent in by a medical professional or institution (, PA, MD UROLOGIST, urgent care, hospital, or senior living...) When possible be specific @ -No Did you speak to anyone other than the patient for history (EMS, parent, family, police, friend...)? What history was obtained from this source @ -No Did you review nursing and triage notes (agree or disagree)? Why? @ -I reviewed and agree with nursing and triage notes Were old charts reviewed (outside hosp., previous admission, EMS record, old EKG, old radiological studies, urgent care reports/EKG's, senior living records)? Report findings @ -Yes, I reviewed colonoscopy report from April [address] from March 2021 Differential Diagnosis (chest pain, altered mental status, abdominal pain women, abdominal pain men, vaginal bleeding, weakness, fever, dyspnea, syncope, headache, dizziness, GI bleed, back pain, seizure, CVA, palpatations, mental health, musculoskeletal)? @ -Differential Abdominal Pain Men: Appendicitis, cholecystitis, diverticulosis, ischemic bowel, pancreatitis, hepatitis, UTI, gastroenteritis, AAA, incarcerated hernia, bowel obstruction, constipation, inflammatory bowel, hepatitis, peptic ulcer disease, splenic infarction, perforated viscus, testicular torsion, this is not meant to be an all-inclusive list EKG interpreted by me (3pts min.). @ -None done X-rays interpreted by me (1pt min.). @ -KUB: No acute intra-abdominal process identified. No free air, normal gas and stool patterns. CT interpreted by me (1pt min.). @ -None done U/S interpreted by me (1pt. min.). @ -None done What testing was considered but not performed or refused? (CT, X-rays, U/S, labs)? Why? @ -None What meds were considered but not given or refused? Why? @ -None Did you discuss the management of the patient with other professionals (professionals i.e. Dr., PA, MD UROLOGIST, lab, RT, psych nurse, social work administrator, heliarc welder, teacher, loan officer assistant, case loader operator)? Give summary @ -No Was smoking cessation discussed for >3mins.? @ -No Was critical care preformed (if so, how long)? @ -No Were there social determinants of health that impacted care today? How? (Homeles sness, low income, unemployed, alcoholism, drug addiction, transportation, low edu. Level, literacy, decrease access to med. care, longterm, rehab)? @ -No Was there de-escalation of care discussed even if they declined (Discuss DNR or withdrawal of care, Hospice)? DNR status @ -No What co-morbidities impacted this encounter? (DM, HTN, Smoking, COPD, CAD, Cancer, CVA, ARF, Chemo, Hep., AIDS, mental health diagnosis, sleep apnea, morbid obesity)? @ -None Was patient admitted / discharged? Hospital course, mention meds given and route, prescriptions, significant lab abnormalities, going to OR and other pertinent info. @ -47-year-old male presenting to the emergency room with lower abdominal pain ongoing for approximately for a few days with worsening in tensity. Known history of diverticulitis. Will obtain laboratory studies of CBC, CMP, amylase, lipase, lactic acid, coags and blood cultures. Will check KUB with known diverticulitis history will defer CT scanning. Will give 4 mg of morphine for pain and monitor. Pain improved with morphine. CBC demonstrates mild leukocytosis WBC 14.9. Neutrophils elevated 11.1. No other abnormalities on CBC. Coags normal. CMP reveals elevated glucose at 106 otherwise no abnormalities. Normal electrolytes, normal renal function, normal liver function, amylase and lipase normal. Lactic acid normal at 2.0. KUB demonstrates no abnormalities. Above findings discussed with patient. No indication for further diagnostic testing or laboratory studies. Patient previously responded well to Cipro and Flagyl combination for treatment of diverticulitis will begin this treatment. Patient requesting pain medication for abdominal pain will give tramadol starter pack. Questions and concerns answered. Return parameters to the emergency room discussed. Will discharge home in stable condition on oral treatment for diverticulitis with Cipro, Flagyl and tramadol advising follow-up with primary care provider. Undiagnosed new problem with uncertain prognosis? @ -No Drug Therapy requiring intensive monitoring for toxicity (Heparin, Nitro, Insulin, Cardizem)? @ -No Were any procedures done? @ -No Diagnosis/symptom? @ -Diverticulitis Acute, or Chronic, or Acute on Chronic? @ -Acute Uncomplicated (without systemic symptoms) or Complicated (systemic symptoms)? @ -Uncomplicated Side effects of treatment? @ -No Exacerbation, Progression, or Severe Exacerbation? @ -No Poses a threat to life or bodily function? How? (Chest pain, [place], [place], pneumonia, PE, COPD, DKA, ARF, appy, cholecystitis, CVA, Diverticulitis, Homicidal, Suicidal, threat to staff... and all critical care pts) @ -No Case discussed with Dr Bob. - Lab Data Result diagrams: 10/12/22 11:19 10/12/22 11:19 Lab Results 10/12/22 10/12/22 10/12/22 Range/Units 11:19 11:19 11:19 WBC 14.9 H (3.8-10.6) k/uL RBC 5.17 (4.30-5.90) m/uL Hgb 15.0 (13.0-17.5) gm/dL Hct 44.7 (39.0-53.0) % MCV 86.6 (80.0-100.0) fL MCH 29.1 (25.0-35.0) pg MCHC 33.6 (31.0-37.0) g/dL RDW 13.4 (11.5-15.5) % Plt Count 171 (150-450) k/uL MPV 9.4 Neutrophils % 75 % Lymphocytes % 17 % Monocytes % 6 % Eosinophils % 1 % Basophils % 0 % Neutrophils # 11.1 H (1.3-7.7) k/uL Lymphocytes # 2.6 (1.0-4.8) k/uL Monocytes # 0.8 (0-1.0) k/uL Eosinophils # 0.1 (0-0.7) k/uL Basophils # 0.0 (0-0.2) k/uL PT 9.6 (9.0-12.0) sec INR 0.9 (<1.2) Sodium 138 (137-145) mmol/L Potassium 4.4 (3.5-5.1) mmol/L Chloride 106 (98-107) mmol/L Carbon Dioxide 24 (22-30) mmol/L Anion Gap 8 mmol/L BUN 15 (9-20) mg/dL Creatinine 0.82 (0.66-1.25) mg/dL Est GFR (CKD-EPI)AfAm >90 (>60 ml/min/1.73 sqM) Est GFR (CKD-EPI)NonAf >90 (>60 ml/min/1.73 sqM) Glucose 106 H (74-99) mg/dL Plasma Lactic Acid Zana (0.7-2.0) mmol/L Calcium 9.0 (8.4-10.2) mg/dL Total Bilirubin 0.5 (0.2-1.3) mg/dL AST 24 (17-59) U/L ALT 22 (4-49) U/L Alkaline Phosphatase 56 (38-126) U/L Total Protein 6.8 (6.3-8.2) g/dL Albumin 4.0 (3.5-5.0) g/dL Amylase 37 (30-110) U/L Lipase 48 (23-300) U/L 10/12/22 Range/Units 11:19 WBC (3.8-10.6) k/uL RBC (4.30-5.90) m/uL Hgb (13.0-17.5) gm/dL Hct (39.0-53.0) % MCV (80.0-100.0) fL MCH (25.0-35.0) pg MCHC (31.0-37.0) g/dL RDW (11.5-15.5) % Plt Count (150-450) k/uL MPV Neutrophils % % Lymphocytes % % Monocytes % % Eosinophils % % Basophils % % Neutrophils # (1.3-7.7) k/uL Lymphocytes # (1.0-4.8) k/uL Monocytes # (0-1.0) k/uL Eosinophils # (0-0.7) k/uL Basophils # (0-0.2) k/uL PT (9.0-12.0) sec INR (<1.2) Sodium (137-145) mmol/L Potassium (3.5-5.1) mmol/L Chloride (98-107) mmol/L Carbon Dioxide (22-30) mmol/L Anion Gap mmol/L BUN (9-20) mg/dL Creatinine (0.66-1.25) mg/dL Est GFR (CKD-EPI)AfAm (>60 ml/min/1.73 sqM) Est GFR (CKD-EPI)NonAf (>60 ml/min/1.73 sqM) Glucose (74-99) mg/dL Plasma Lactic Acid Zana 2.0 (0.7-2.0) mmol/L Calcium (8.4-10.2) mg/dL Total Bilirubin (0.2-1.3) mg/dL AST (17-59) U/L ALT (4-49) U/L Alkaline Phosphatase (38-126) U/L Total Protein (6.3-8.2) g/dL Albumin (3.5-5.0) g/dL Amylase (30-110) U/L Lipase (23-300) U/L - Radiology Data Radiology results: report reviewed, image reviewed Disposition Clinical Impression: Diverticulitis Disposition: HOME SELF-CARE Condition: Stable Instructions (If sedation given, give patient instructions): Diverticulitis (ED) Additional Instructions: Please complete course of Cipro and Flagyl as prescribed. Utilize tramadol starter pack as needed for pain. Stay well hydrated. Please follow-up with your primary care provider. Please return to the Emergency Department if symptoms worsen or any other concerns. Prescriptions: Ciprofloxacin HCl [Cipro] 500 mg PO Q12HR 7 Days #14 tab metroNIDAZOLE [Flagyl] 500 mg PO TID 7 Days #21 tab Is patient prescribed a controlled substance at d/c from ED?: No Referrals: None,Stated [Primary Care Provider] - 1-2 days Time of Disposition: 13:24
[2022-10-12 11:28] LABS: Basophils % (A) 0 %; Eosinophils # (A) 0.1 k/uL (0-0.7); Eosinophils % (A) 1 %; HCT 44.7 % (39.0-53.0); Lymphocytes # (A) 2.6 k/uL (1.0-4.8); Lymphocytes % (A) 17 %; MCH 29.1 pg (25.0-35.0); MCHC 33.6 g/dL (31.0-37.0); MCV 86.6 fL (80.0-100.0); Mean Platelet Volume 9.4; Monocytes # (A) 0.8 k/uL (0-1.0); Monocytes % (A) 6 %; Neutrophils # (A) 11.1 k/uL (1.3-7.7); Neutrophils % (A) 75 %; Platelet Count 171 k/uL (150-450); RBC 5.17 m/uL (4.30-5.90); RDW 13.4 % (11.5-15.5); WBC 14.9 k/uL (3.8-10.6)
[2022-10-12 11:35] VITALS: RESP 18
[2022-10-12 11:43] LABS: INR 0.9 (<1.2); Prothrombin Time 9.6 sec (9.0-12.0)
[2022-10-12 11:51] LABS: ALT 22 U/L (4-49); AST 24 U/L (17-59); African American GFR (CKD) >90 (>60 ml/min/1.73 sqM); Alkaline Phosphatase 56 U/L (38-126); Amylase 37 U/L (30-110); Anion Gap 8 mmol/L; Blood Urea Nitrogen 15 mg/dL (9-20); Carbon Dioxide 24 mmol/L (22-30); Chloride 106 mmol/L (98-107); Glucose 106 mg/dL (74-99); Lipase 48 U/L (23-300); Non-African American GFR(CKD) >90 (>60 ml/min/1.73 sqM); Sodium 138 mmol/L (137-145); Total Bilirubin 0.5 mg/dL (0.2-1.3); Total Protein 6.8 g/dL (6.3-8.2)
[2022-10-12 12:11] LABS: Potassium 4.4 mmol/L (3.5-5.1)
--- NOTE | 2022-10-12 13:00 | XR ---
Supine and upright abdomen. DATE: 10/12/2022. COMPARISON: None available. CLINICAL HISTORY: Abdominal pain. FINDINGS: The bowel gas pattern is nonobstructive. No abnormal mass effect or suspicious calcifications are seen. IMPRESSION: Nonobstructive bowel gas pattern.
[2022-10-12] MEDS ORDERED: traMADol 50 MG STARTER PACK 3 TAB BTL PO STA (13:18)
[2022-10-12 13:41] VITALS: BP 120/78; PULSE 77; TEMP 98.5
== END 2022-10-12 13:45 | disposition home or self-care (01) ==
LOC: EC 10:44
DX: K57.32 Diverticulitis of large intestine without perforation or abscess without bleeding (principal); I10 Essential (primary) hypertension; F17.200 Nicotine dependence, unspecified, uncomplicated; Z79.899 Other long term (current) drug therapy
CPT/HCPCS: 36415; 80053; 82150; 83605; 83690; 85025; 85610; 74018; 99284; 96374; J2270

== ENCOUNTER 2023-07-12 08:46 | Observation (INO) | payer OTHER ==
[2023-07-12 09:39] LABS: Basophils # (A) 0.1 k/uL (0-0.2); Basophils % (A) 0 %; Eosinophils # (A) 0.1 k/uL (0-0.7); Eosinophils % (A) 1 %; HGB 14.7 gm/dL (13.0-17.5); Lymphocytes # (A) 2.4 k/uL (1.0-4.8); Lymphocytes % (A) 15 %; MCHC 33.5 g/dL (31.0-37.0); MCV 86.5 fL (80.0-100.0); Mean Platelet Volume 9.1; Monocytes # (A) 0.8 k/uL (0-1.0); Monocytes % (A) 5 %; Neutrophils # (A) 12.7 k/uL (1.3-7.7); Neutrophils % (A) 78 %; Platelet Count 160 k/uL (150-450); RBC 5.08 m/uL (4.30-5.90); RDW 13.2 % (11.5-15.5); WBC 16.3 k/uL (3.8-10.6)
[2023-07-12 09:53] LABS: ALT 26 U/L (4-49); AST 24 U/L (17-59); African American GFR (CKD) >90 (>60 ml/min/1.73 sqM); Albumin 4.3 g/dL (3.5-5.0); Alkaline Phosphatase 54 U/L (38-126); Anion Gap 10 mmol/L; Blood Urea Nitrogen 18 mg/dL (9-20); Calcium 9.2 mg/dL (8.4-10.2); Carbon Dioxide 23 mmol/L (22-30); Chloride 106 mmol/L (98-107); Glucose 102 mg/dL (74-99); Lipase 44 U/L (23-300); Non-African American GFR(CKD) >90 (>60 ml/min/1.73 sqM); Potassium 4.6 mmol/L (3.5-5.1); Sodium 139 mmol/L (137-145); Total Bilirubin 0.5 mg/dL (0.2-1.3)
--- NOTE | 2023-07-12 09:58 | ED ---
General Adult HPI - General Chief complaint: Abdominal Pain Stated complaint: diverticulitis flair up Time Seen by Provider: 07/12/23 09:27 Source: patient Mode of arrival: ambulatory Limitations: no limitations - History of Present Illness Initial comments: Dictation was produced using [employer] dictation software. please excuse any grammatical, word or spelling errors. Chief Complaint: 47-year-old male with lower abdominal pain History of Present Illness: She is a 47-year-old male presents with lower abdominal pain. Patient has history of diverticulitis. States that his diverticulitis is usually mild since his initial episode years ago. States at this time and felt a little more severe. Denies any fevers. He has had some diarrhea. The ROS documented in this emergency department record has been reviewed and confirmed by me. Those systems with pertinent positive or negative responses have been documented in the HPI. All other systems are other negative and/or noncontributory. - Related Data Home Medications Medication Instructions Recorded Confirmed No Known Home Medications 07/12/23 07/12/23 Allergies Allergy/AdvReac Type Severity Reaction Status Date / Time codeine Allergy Unknown Verified 07/12/23 11:37 Childhood Review of Systems ROS Statement: Those systems with pertinent positive or pertinent negative responses have been documented in the HPI. ROS Other: All systems not noted in ROS Statement are negative. Past Medical History Past Medical History: Hypertension Additional Past Medical History / Comment(s): diverticulosis History of Any Multi-Drug Resistant Organisms: None Reported Past Surgical History: No Surgical Hx Reported Past Anesthesia/Blood Transfusion Reactions: No Reported Reaction Past Psychological History: No Psychological Hx Reported Smoking Status: Current every day smoker Past Alcohol Use History: None Reported, Occasional Past Drug Use History: None Reported - Past Family History Mother Family Medical History: No Reported History General Exam - General Exam Comments Initial Comments: PHYSICAL EXAM: General Impression: Alert and oriented x3, not in acute distress HEENT: Normocephalic atraumatic, extra-ocular movements intact, pupils equal and reactive to light bilaterally, mucous membranes moist. Cardiovascular: Heart regular rate and rhythm Chest: Able to complete full sentences, no retractions, no tachypnea Abdomen: abdomen soft, palpatory tenderness to the lower abdomen non-distended, no organomegaly Musculoskeletal: Pulses present and equal in all extremities, no peripheral edema Motor: no focal deficits noted Neurological: CN II-XII grossly intact, no focal motor or sensory deficits noted Skin: Intact with no visualized rashes Psych: Normal affect and mood Limitations: no limitations Course Vital Signs 07/12/23 07/12/23 08:50 11:53 Temperature 97.7 F Pulse Rate 81 46 L Respiratory 18 18 Rate Blood Pressure 142/103 140/78 O2 Sat by Pulse 98 98 Oximetry Medical Decision Making - Medical Decision Making Was pt. sent in by a medical professional or institution (, PA, TOLL REPAIRER CENTRAL OFFICE, urgent care, hospital, or half-way...) When possible be specific @ -No Did you speak to anyone other than the patient for history (EMS, parent, family, police, friend...)? What history was obtained from this source @ -No Did you review nursing and triage notes (agree or disagree)? Why? @ -I reviewed and agree with nursing and triage notes Were old charts reviewed (outside hosp., previous admission, EMS record, old EKG, old radiological studies, urgent care reports/EKG's, half-way records)? Report findings @ -No old charts were reviewed Differential Diagnosis (chest pain, altered mental status, abdominal pain women, abdominal pain men, vaginal bleeding, musculoskeletal, weakness, fever, dyspnea, syncope, headache, dizziness, GI bleed, back pain, seizure, CVA, palpatations, mental health)? @ -Differential Abdominal Pain Men: Appendicitis, cholecystitis, diverticulosis, ischemic bowel, pancreatitis, hepatitis, UTI, gastroenteritis, AAA, incarcerated hernia, bowel obstruction, constipation, inflammatory bowel, hepatitis, peptic ulcer disease, splenic infarction, perforated viscus, testicular torsion, this is not meant to be an all-inclusive list EKG interpreted by me (3pts min.). @ -None done X-rays interpreted by me (1pt min.). @ -None done CT interpreted by me (1pt min.). @ -CT shows diverticulitis U/S interpreted by me (1pt. min.). @ -None done What testing was considered but not performed or refused? (CT, X-rays, U/S, labs)? Why? @ -None What meds were considered but not given or refused? Why? @ -None Did you discuss the management of the patient with other professionals (professionals i.e. , NORA, TOLL REPAIRER CENTRAL OFFICE, lab, RT, psych nurse, social worker aide, evp head of [employer] experience strategy, teacher, property and supply officer, family service caseworker)? Give summary @ -Case discussed with hospice for admission Was smoking cessation discussed for >3mins.? @ -No Was critical care preformed (if so, how long)? @ -No Were there social determinants of health that impacted care today? How? (Homelessness, low income, unemployed, alcoholism, drug addiction, transp ortation, low edu. Level, literacy, decrease access to med. care, halfway, rehab)? @ -No Was there de-escalation of care discussed even if they declined (Discuss DNR or withdrawal of care, Hospice)? DNR status @ -No What co-morbidities impacted this encounter? (DM, HTN, Smoking, COPD, CAD, Cancer, CVA, ARF, Chemo, Hep., AIDS, mental health diagnosis, sleep apnea, morbid obesity)? @ -None Was patient admitted / discharged? Hospital course, mention meds given and route, prescriptions, significant lab abnormalities, going to OR and other pertinent info. @ -47-year-old male presents to the emergency department for abdominal pain. He has a history of diverticulitis. Vital signs upon arrival are within acceptable limits. Laboratory evaluation shows leukocytosis of 16.3. Rest of labs unremarkable. Urinalysis negative. CT shows an Acute diverticulitis. Patient's having severe symptoms at bedside is agreeable with hospital admission for medical monitoring and antibiotic treatment. Undiagnosed new problem with uncertain prognosis? @ -No Drug Therapy requiring intensive monitoring for toxicity (Heparin, Nitro, Insulin, Cardizem)? @ -No Were any procedures done? @ -No Diagnosis/symptom? Acute, or Chronic, or Acute on Chronic? Uncomplicated (without systemic symptoms) or Complicated (systemic symptoms)? @ -Diverticulitis Side effects of treatment? @ -No Exacerbation, Progression, or Severe Exacerbation? @ -No Poses a threat to life or bodily function? How? (Chest pain, [place], [place], pneumonia, PE, COPD, DKA, ARF, appy, cholecystitis, CVA, Diverticulitis, Homicidal, Suicidal, threat to staff... and all critical care pts) @ -yes - Lab Data Result diagrams: 07/12/23 09:06 07/12/23 09:06 Lab Results 07/12/23 07/12/23 07/12/23 Range/Units 09:06 09:06 09:06 WBC 16.3 H (3.8-10.6) k/uL RBC 5.08 (4.30-5.90) m/uL Hgb 14.7 (13.0-17.5) gm/dL Hct 44.0 (39.0-53.0) % MCV 86.5 (80.0-100.0) fL MCH 29.0 (25.0-35.0) pg MCHC 33.5 (31.0-37.0) g/dL RDW 13.2 (11.5-15.5) % Plt Count 160 (150-450) k/uL MPV 9.1 Neutrophils % 78 % Lymphocytes % 15 % Monocytes % 5 % Eosinophils % 1 % Basophils % 0 % Neutrophils # 12.7 H (1.3-7.7) k/uL Lymphocytes # 2.4 (1.0-4.8) k/uL Monocytes # 0.8 (0-1.0) k/uL Eosinophils # 0.1 (0-0.7) k/uL Basophils # 0.1 (0-0.2) k/uL Sodium 139 (137-145) mmol/L Potassium 4.6 (3.5-5.1) mmol/L Chloride 106 (98-107) mmol/L Carbon Dioxide 23 (22-30) mmol/L Anion Gap 10 mmol/L BUN 18 (9-20) mg/dL Creatinine 0.78 (0.66-1.25) mg/dL Est GFR (CKD-EPI)AfAm >90 (>60 ml/min/1.73 sqM) Est GFR (CKD-EPI)NonAf >90 (>60 ml/min/1.73 sqM) Glucose 102 H (74-99) mg/dL Plasma Lactic Acid Zana 1.0 (0.7-2.0) mmol/L Calcium 9.2 (8.4-10.2) mg/dL Total Bilirubin 0.5 (0.2-1.3) mg/dL AST 24 (17-59) U/L ALT 26 (4-49) U/L Alkaline Phosphatase 54 (38-126) U/L Total Protein 7.0 (6.3-8.2) g/dL Albumin 4.3 (3.5-5.0) g/dL Lipase 44 (23-300) U/L Urine Color Urine Appearance (Clear) Urine pH (5.0-8.0) Ur Specific [place] (1.001-1.035) Urine Protein (Negative) Urine Glucose (UA) (Negative) Urine Ketones (Negative) Urine Blood (Negative) Urine Nitrite (Negative) Urine Bilirubin (Negative) Urine Urobilinogen (<2.0) mg/dL Ur Leukocyte Esterase (Negative) 07/12/23 Range/Units 11:05 WBC (3.8-10.6) k/uL RBC (4.30-5.90) m/uL Hgb (13.0-17.5) gm/dL Hct (39.0-53.0) % MCV (80.0-100.0) fL MCH (25.0-35.0) pg MCHC (31.0-37.0) g/dL RDW (11.5-15.5) % Plt Count (150-450) k/uL MPV Neutrophils % % Lymphocytes % % Monocytes % % Eosinophils % % Basophils % % Neutrophils # (1.3-7.7) k/uL Lymphocytes # (1.0-4.8) k/uL Monocytes # (0-1.0) k/uL Eosinophils # (0-0.7) k/uL Basophils # (0-0.2) k/uL Sodium (137-145) mmol/L Potassium (3.5-5.1) mmol/L Chloride (98-107) mmol/L Carbon Dioxide (22-30) mmol/L Anion Gap mmol/L BUN (9-20) mg/dL Creatinine (0.66-1.25) mg/dL Est GFR (CKD-EPI)AfAm (>60 ml/min/1.73 sqM) Est GFR (CKD-EPI)NonAf (>60 ml/min/1.73 sqM) Glucose (74-99) mg/dL Plasma Lactic Acid Zana (0.7-2.0) mmol/L Calcium (8.4-10.2) mg/dL Total Bilirubin (0.2-1.3) mg/dL AST (17-59) U/L ALT (4-49) U/L Alkaline Phosphatase (38-126) U/L Total Protein (6.3-8.2) g/dL Albumin (3.5-5.0) g/dL Lipase (23-300) U/L Urine Color Colorless Urine Appearance Clear (Clear) Urine pH 6.0 (5.0-8.0) Ur Specific [place] 1.010 (1.001-1.035) Urine Protein Negative (Negative) Urine Glucose (UA) Negative (Negative) Urine Ketones Negative (Negative) Urine Blood Negative (Negative) Urine Nitrite Negative (Negative) Urine Bilirubin Negative (Negative) Urine Urobilinogen 0.2 (<2.0) mg/dL Ur Leukocyte Esterase Negative (Negative) Disposition Clinical Impression: Diverticulitis Disposition: ADMITTED IP TO THIS [facility] Referrals: None,Stated [Primary Care Provider] - 1-2 days Decision Time: 12:11
--- NOTE | 2023-07-12 10:19 | CT ---
EXAMINATION TYPE: CT abdomen pelvis w con CT DLP: 883 mGycm, Automated exposure control for dose reduction was used. DATE OF EXAM: 07/12/2023 10:00 AM COMPARISON: CT 03/07/2021 CLINICAL INDICATION:Male, 47 years old with history of abdominal pain; ABD PAIN TECHNIQUE: Axial CT of the abdomen and pelvis. Sagittal and coronal reformats were created on a [employer] workstation. Contrast used:100 mL of Isovue 300 with IV Contrast, (none if empty) Oral contrast used: without Oral Contrast (none if empty) FINDINGS: LOWER CHEST: Unremarkable ABDOMEN LIVER: Stable tiny hypodensity in the left lobe towards the dome, presumed benign. GALLBLADDER AND BILE DUCTS: Unremarkable. PANCREAS: Unremarkable. SPLEEN: Unremarkable. ADRENAL GLANDS: Unremarkable. KIDNEYS AND URETERS: Kidneys enhance symmetrically. There is no evidence of hydronephrosis. PELVIS BLADDER: Incompletely filled nevertheless has a thickened appearance of the wall up to 7 mm. REPRODUCTIVE: Mildly prominent prostate measures 4 cm transverse ABDOMEN & PELVIS STOMACH AND BOWEL: Stomach and small bowel are nondistended, no evidence of obstruction. There is carol e fecalization in the distal small bowel suggestive of stasis. What seems to be the appendix does not appear dilated or inflamed. Mild/moderate stool throughout the colon. There are several colonic dive rticula present. There are inflammatory changes centered on a posterior diverticulum in the distal de scending colon, as well as a separate longer segment of sigmoid colon which demonstrates wall thicken ing with luminal narrowing, and several diverticula in the region. Inflammatory changes of the adjace nt pericolonic fat. PERITONEUM/RETROPERITONEUM: No evidence of pneumoperitoneum or free fluid in the abdomen. Small amoun t of free pelvic fluid is suggested. VASCULATURE: Mild/moderate mixed plaque of the abdominal aorta without evidence of AAA. Additional mi ld disease in the iliac arterial trees.. MUSCULOSKELETAL: No acute osseous abnormalities LYMPH NODES: No gross evidence for lymphadenopathy. SOFT TISSUE/ABDOMINAL WALL: Tiny fat-containing right inguinal hernia. IMPRESSION: 1. Small focal acute diverticulitis in the distal descending colon without evidence of complication. 2. Longer segment wall thickening with several regional diverticula and surrounding inflammatory haley nges in the sigmoid colon, likely represents diverticulitis or focal colitis. 3. Thickened appearance of the urinary bladder wall, could be due to cystitis, bladder wall hypertro phy, and/or incomplete distention. Correlate clinically.
[2023-07-12 11:47] LABS: Appearance,Urine Clear (Clear); Color,Urine Colorless
[2023-07-12 11:48] LABS: Bilirubin,Urine Negative (Negative); Blood,Urine Negative (Negative); Glucose,Urine (UA) Negative (Negative); Ketones,Urine Negative (Negative); Leukocyte Esterase,Urine Negative (Negative); Nitrite,Urine Negative (Negative); Protein,Urine Negative (Negative); Urobilinogen,Urine 0.2 mg/dL (<2.0)
[2023-07-12] MEDS ORDERED: AMPICILLIN-SULBACTAM 3 GM in SODIUM CHLORIDE 0.9% 100 ML IVPB STA (12:11)
[2023-07-12] MEDS ORDERED: NALOXONE 0.4 MG/ML 1 ML VIAL IV PRN (12:12)
[2023-07-12] MEDS: MORPHINE SULFATE 4 MG/ML SYRINGE IVP PRN ×2 (12:38→17:25)
[2023-07-12] MEDS ORDERED: ACETAMINOPHEN TAB 325 MG TAB PO PRN (17:35)
[2023-07-12] MEDS ORDERED: MORPHINE SULFATE 4 MG/ML SYRINGE IVP PRN (17:36)
[2023-07-12] MEDS ORDERED: ONDANSETRON 4 MG/2 ML VIAL IVP PRN (17:36)
--- NOTE | 2023-07-12 17:53 | P.HPIM ---
History of Present Illness H&P Date: 07/12/23 Patient is a 47-year-old male with history of diverticulitis presenting with abdominal pain. He claims that he has been having bouts of diverticulitis for the last 10 years. He had a colonoscopy 3 years ago which showed diverticulosis, no masses. He denies any family history of colon cancer. He denies any fevers, chills, nausea, vomiting, urinary or bowel complaints. His abdominal pain currently very mild is in the left lower quadrant, started yesterday. He smokes one half pack per day, occasional alcohol use, denies illicit drug use. In the ED, temperature was 97.7, pulse 81, respiratory rate 18, blood pressure 142/103, saturating at 98% on room air. WBC 16.3, creatinine 0.78, lipase 44, urinalysis negative. CT abdomen and pelvis showed acute diverticulitis in the descending distal colon without evidence of complication, longer segment wall thickening in several regional diverticula and surrounding inflammatory changes in the sigmoid colon representing diverticulitis or focal colitis, possible cystitis. Patient admitted for pain control secondary to diverticulitis.. Pertinent positives and negatives as discussed in HPI, a complete review of systems was performed and all other systems are negative. Patient seen and examined at bedside. Vital signs reviewed General: nontoxic, no distress, appears at stated age Derm: warm, dry Head: atraumatic, normocephalic, symmetric Eyes: EOMI, no lid lag, anicteric sclera, pupils equal round reactive to light ENT: Nose and ears atraumatic Neck: No thyromegaly, supple Mouth: no lip lesion, mucus membranes moist Cardiovascular: S1S2 reg, no murmur, no edema Lungs: clear to auscultation bilateral, no rhonchi, no rales, no wheeze, no accessory muscle use Abdominal: soft, TTP in LLQ, no guarding, no appreciable organomegaly Ext: no gross muscle atrophy, muscle strength muscle strength 5 out of 5 in all 4 extremities, no contractures Neuro: CN II-XII grossly intact Psych: Alert, oriented, appropriate affect Assessment/Plan: Active: Acute diverticulitis Intractable abdominal pain -Uncomplicated diverticulitis, no need for antibiotics -Blood cultures pending -Advance diet as tolerated -Pain control with oral Tylenol 650 every 6 hours as needed, [place] 5-6 hours as needed, IV morphine 4 mg every 4 hours as needed -Zofran 4 mg IV every 6 hours as needed -Encourage oral fluid intake -Likely discharge tomorrow -Outpatient follow up with GI, likely need repeat colonoscopy Nicotine dependence -Counseled regarding smoke cessation The patient is admitted with an anticipated greater than 2 midnight stay as inpatient/observation status for evaluation of . Surrogate decision-maker: Father CODE STATUS: Full code DVT prophylaxis: Patient is ambulatory Anticipated discharge date: Tomorrow Anticipated discharge place: Home A total of 55 minutes was spent on the care of this complex patient more than 50% of the time was spent in counseling and care coordination. Past Medical History Past Medical History: Hypertension Additional Past Medical History / Comment(s): diverticulosis History of Any Multi-Drug Resistant Organisms: None Reported Past Surgical History: No Surgical Hx Reported Past Anesthesia/Blood Transfusion Reactions: No Reported Reaction Past Psychological History: No Psychological Hx Reported Smoking Status: Current every day smoker Past Alcohol Use History: None Reported, Occasional Additional Past Alcohol Use History / Comment(s): SMOKES 1 PPD SINCE AGE 19 Past Drug Use History: None Reported - Past Family History Mother Family Medical History: No Reported History Medications and Allergies Home Medications Medication Instructions Recorded Confirmed Type No Known Home Medications 07/12/23 07/12/23 History Allergies Allergy/AdvReac Type Severity Reaction Status Date / Time codeine Allergy Unknown Verified 07/12/23 11:37 Childhood Physical Exam Vitals: Vital Signs Temp Pulse Resp BP Pulse Ox 07/12/23 17:16 76 18 134/76 96 07/12/23 15:00 72 18 118/63 98 07/12/23 13:00 78 18 117/68 98 07/12/23 11:53 46 L 18 140/78 98 07/12/23 08:50 97.7 F 81 18 142/103 98 Intake and Output 07/12/23 07/12/23 07/12/23 06:59 14:59 22:59 Other: Weight 83.915 kg Results CBC & Chem 7: 07/12/23 09:06 07/12/23 09:06 Labs: Abnormal Lab Results - Last 24 Hours (Table) 07/12/23 07/12/23 Range/Units 09:06 09:06 WBC 16.3 H (3.8-10.6) k/uL Neutrophils # 12.7 H (1.3-7.7) k/uL Glucose 102 H (74-99) mg/dL Thrombosis Risk Factor Assmnt - Choose All That Apply Any of the Below Risk Factors Present?: Yes Each Factor Represents 1 point: Obesity (BMI >25) Other Risk Factors: No Thrombosis Risk Factor Assessment Total Risk Factor Score: 1 Thrombosis Risk Factor Assessment Level: Low Risk
[2023-07-12] MEDS: HYDROcodone/APAP 5-325MG 1 EACH TAB PO PRN (21:41)
[2023-07-13 08:20] VITALS: BP 134/84; PULSE 67; RESP 17; TEMP 97.7
--- NOTE | 2023-07-13 10:47 | P.DS ---
Providers Date of admission: 07/12/23 12:12 Expected date of discharge: 07/13/23 Attending physician: Jeff Hardin MD Primary care physician: Stated None Hospital Course: Discharge Diagnosis: Acute diverticulitis Leukocytosis Intractable abdominal pain Nicotine dependence Hospital Course: 47-year-old male with history of diverticulitis presenting with abdominal pain. In the ED, temperature was 97.7, pulse 81, respiratory rate 18, blood pressure 142/103, saturating at 98% on room air. WBC 16.3, creatinine 0.78, lipase 44, urinalysis negative. CT abdomen and pelvis showed acute diverticulitis in the descending distal colon without evidence of complication, longer segment wall thickening in several regional diverticula and surrounding inflammatory changes in the sigmoid colon representing diverticulitis or focal colitis, possible cystitis. Patient admitted for pain control secondary to diverticulitis. Patient improved. Patient being discharged home. Tolerating oral intake. Follow-up with GI for repeat colonoscopy. Patient seen and examined at bedside. Vital signs reviewed and stable. General: nontoxic, no distress, appears at stated age Derm: warm, dry Head: atraumatic, normocephalic, symmetric Eyes: EOMI, no lid lag, anicteric sclera Mouth: no lip lesion, mucus membranes moist Cardiovascular: S1S2 reg, no murmur Lungs: CTA bilateral, no rhonchi, no rales , no accessory muscle use Abdominal: soft, nontender to palpation, no guarding, no appreciable organomegaly Ext: no gross muscle atrophy, no edema, no contractures Neuro: CN II-XI grossly intact, no focal neuro deficits Psych: Alert, oriented, appropriate affect A total of 33 minutes of time were spent preparing this complex discharge summary. Patient was discharged on 07/13/23 at 10:10. Patient Condition at Discharge: Stable Plan - Discharge Summary Discharge Rx Participant: Yes New Discharge Prescriptions: No Action No Known Home Medications Discharge Medication List No Known Home Medications 07/12/23 [History] Follow up Appointment(s)/Referral(s): Gemma Crawford MD [STAFF PHYSICIAN] - 1 Week None,Stated [Primary Care Provider] - 1-2 days Patient Instructions/Handouts: Diverticulitis (DC), Diverticulitis Diet (DC) Activity/Diet/Wound Care/Special Instructions: Please see PCP and GI. You will likely need repeat colonoscopy. Discharge Disposition: HOME SELF-CARE
[2023-07-13] MEDS: HYDROcodone/APAP 5-325MG 1 EACH TAB PO PRN (11:25)
== END 2023-07-13 11:47 | disposition home or self-care (01) ==
LOC: EC 08:46 → 4SSUR 12:12 → INTOOBSV 12:12 → 4SSUR 16:47 → UNDODISIN 07-13 11:47
PROVIDERS: ADMIT Student in an Organized Health Care Education/Training Program; ATTEND Student in an Organized Health Care Education/Training Program
DX: K57.92 Diverticulitis of intestine, part unspecified, without perforation or abscess without bleeding (principal); D72.829 Elevated white blood cell count, unspecified; I10 Essential (primary) hypertension; F17.200 Nicotine dependence, unspecified, uncomplicated; Z88.5 Allergy status to narcotic agent
CPT/HCPCS: 96376 ×2; 96365; 96374; 96375; 99285; 36415; 80053; 83605; 83690; 85025; 81003; 87040; 74177; G0378 ×2; J2270 ×2; J0295; Q9967

== ENCOUNTER 2024-06-06 18:32 | Observation (INO) | payer OTHER ==
--- NOTE | 2024-06-06 19:06 | ED ---
General Adult HPI - General Chief complaint: Abdominal Pain Stated complaint: Diverticulitis Time Seen by Provider: 06/06/24 18:46 Source: patient, RN notes reviewed, old records reviewed Mode of arrival: ambulatory Limitations: no limitations - History of Present Illness Initial comments: 48-year-old male presenting for evaluation of lower abdominal pain, history of diverticulitis. Patient symptoms began today. He has associated nausea and some diarrhea. No fever. Pain is consistent with prior episodes of diverticulitis. - Related Data Home Medications Medication Instructions Recorded Confirmed No Known Home Medications 07/12/23 06/06/24 Allergies Allergy/AdvReac Type Severity Reaction Status Date / Time codeine Allergy Abdominal Verified 06/06/24 19:43 Pain Review of Systems ROS Statement: Those systems with pertinent positive or pertinent negative responses have been documented in the HPI. ROS Other: All systems not noted in ROS Statement are negative. Past Medical History Past Medical History: Hypertension Additional Past Medical History / Comment(s): diverticulosis History of Any Multi-Drug Resistant Organisms: None Reported Past Surgical History: No Surgical Hx Reported Past Anesthesia/Blood Transfusion Reactions: No Reported Reaction Past Psychological History: No Psychological Hx Reported Smoking Status: Current every day smoker Past Alcohol Use History: None Reported, Occasional Past Drug Use History: None Reported - Past Family History Mother Family Medical History: No Reported History General Exam Limitations: no limitations General appearance: alert, in distress Head exam: Present: atraumatic, normocephalic Eye exam: Present: normal appearance, PERRL ENT exam: Present: normal exam Neck exam: Present: normal inspection. Absent: tenderness, meningismus Respiratory exam: Present: normal lung sounds bilaterally. Absent: respiratory distress, wheezes Cardiovascular Exam: Present: regular rate, normal rhythm GI/Abdominal exam: Present: soft, tenderness, guarding. Absent: distended Extremities exam: Present: normal inspection, normal capillary refill Neurological exam: Present: alert, oriented X3 Psychiatric exam: Present: normal affect, normal mood Course Vital Signs 06/06/24 18:42 Temperature 99.5 F Pulse Rate 91 Respiratory 16 Rate Blood Pressure 170/100 O2 Sat by Pulse 98 Oximetry Medical Decision Making - Medical Decision Making Was pt. sent in by a medical professional or institution (, PA, [employer] CONSULTANT, urgent care, hospital, or snf...) When possible be specific @ -Differential Abdominal Pain Men: Appendicitis, cholecystitis, diverticulosis, ischemic bowel, pancreatitis, hepatitis, UTI, gastroenteritis, AAA, incarcerated hernia, bowel obstruction, constipation, inflammatory bowel, hepatitis, peptic ulcer disease, splenic infarction, perforated viscus, testicular torsion, this is not meant to be an all-inclusive list Did you speak to anyone other than the patient for history (EMS, parent, family, police, friend...)? What history was obtained from this source @ -No Did you review nursing and triage notes (agree or disagree)? Why? @ -I reviewed and agree with nursing and triage notes Were old charts reviewed (outside hosp., previous admission, EMS record, old EKG, old radiological studies, urgent care reports/EKG's, snf records)? Report findings @ -No old charts were reviewed Differential Diagnosis (chest pain, altered mental status, abdominal pain women, abdominal pain men, vaginal bleeding, weakness, fever, dyspnea, syncope, headache, dizziness, GI bleed, back pain, seizure, CVA, palpatations, mental health, musculoskeletal)? @ -Not applicable EKG interpreted by me (3pts min.). @ -As above X-rays interpreted by me (1pt min.). @ -None done CT interpreted by me (1pt min.). @CT of the abdomen pelvis shows sigmoid colitis U/S interpreted by me (1pt. min.). @ -None done What testing was considered but not performed or refused? (CT, X-rays, U/S, labs)? Why? @ -None What meds were considered but not given or refused? Why? @ -None Did you discuss the management of the patient with other professionals (professionals i.e. , PA, [employer] CONSULTANT, lab, RT, psych nurse, social work assistant, criminal justice lawyer, teacher, cavalry officer, case management coordinator)? Give summary @ -[Case discussed with Ha saldana for [facility] Was smoking cessation discussed for >3mins.? @ -No Was critical care preformed (if so, how long)? @ -No Were there social determinants of health that impacted care today? How? (Homel essness, low income, unemployed, alcoholism, drug addiction, transportation, low edu. Level, literacy, decrease access to med. care, usp, rehab)? @ -No Was there de-escalation of care discussed even if they declined (Discuss DNR or withdrawal of care, Hospice)? DNR status @ -No What co-morbidities impacted this encounter? (DM, HTN, Smoking, COPD, CAD, Cancer, CVA, ARF, Chemo, Hep., AIDS, mental health diagnosis, sleep apnea, morbid obesity)? @ -[ history of recurrent diverticulitis Was patient admitted / discharged? Hospital course, mention meds given and route, prescriptions, significant lab abnormalities, going to OR and other pertinent info. @ -48-year-old male with lower abdominal pain severe in nature x 24 hours. History of diverticulitis. Patient is uncomfortable on initial examination with focal tenderness and guarding. Workup is initiated including laboratory testing, CT abdomen pelvis. Patient has a significantly elevated white blood cell count which is predominantly neutrophils. Mild SEGUN, CT showing circumferential sigmoid colitis. Given the severity of symptoms and elevated white blood cell count he is placed in observation for symptom control, hydration, IV antibiotics. General surgery placed on consult. Undiagnosed new problem with uncertain prognosis? @ -No Drug Therapy requiring intensive monitoring for toxicity (Heparin, Nitro, Insulin, Cardizem)? @ -No Were any procedures done? @ -No Diagnosis/symptom? @ -[Sigmoid colitis, leukocytosis Acute, or Chronic, or Acute on Chronic? @ -Acute Uncomplicated (without systemic symptoms) or Complicated (systemic symptoms)? @ -[default Side effects of treatment? @ -No Exacerbation, Progression, or Severe Exacerbation? @ -No Poses a threat to life or bodily function? How? (Chest pain, [place], MT, pneumonia, PE, COPD, DKA, ARF, appy, cholecystitis, CVA, Diverticulitis, Homicidal, Suicidal, threat to staff... and all critical care pts) @ -yes, sepsis - Lab Data Result diagrams: 06/06/24 19:00 06/06/24 19:00 Lab Results 06/06/24 06/06/24 06/06/24 Range/Units 19:00 19:00 19:00 WBC 24.3 H (3.8-10.6) k/uL RBC 5.02 (4.30-5.90) m/uL Hgb 14.7 (13.0-17.5) gm/dL Hct 44.1 (39.0-53.0) % MCV 87.9 (80.0-100.0) fL MCH 29.2 (25.0-35.0) pg MCHC 33.3 (31.0-37.0) g/dL RDW 13.4 (11.5-15.5) % Plt Count 227 (150-450) k/uL MPV 8.7 Neutrophils % 82 % Lymphocytes % 13 % Monocytes % 4 % Eosinophils % 1 % Basophils % 1 % Neutrophils # 19.9 H (1.3-7.7) k/uL Lymphocytes # 3.0 (1.0-4.8) k/uL Monocytes # 0.9 (0-1.0) k/uL Eosinophils # 0.2 (0-0.7) k/uL Basophils # 0.1 (0-0.2) k/uL PT 9.9 L (10.0-12.5) sec INR 0.9 (<1.2) APTT 24.6 (22.0-30.0) sec Sodium 139 (137-145) mmol/L Potassium 4.5 (3.5-5.1) mmol/L Chloride 109 H (98-107) mmol/L Carbon Dioxide 22 (22-30) mmol/L Anion Gap 8 mmol/L BUN 28 H (9-20) mg/dL Creatinine 1.39 H (0.66-1.25) mg/dL Est GFR (CKD-EPI)AfAm 70 (>60 ml/min/1.73 sqM) Est GFR (CKD-EPI)NonAf 60 (>60 ml/min/1.73 sqM) Glucose 109 H (74-99) mg/dL Plasma Lactic Acid [place] (0.7-2.0) mmol/L Calcium 8.9 (8.4-10.2) mg/dL Total Bilirubin 0.4 (0.2-1.3) mg/dL AST 30 (17-59) U/L ALT 23 (4-49) U/L Alkaline Phosphatase 56 (38-126) U/L Total Protein 7.0 (6.3-8.2) g/dL Albumin 4.3 (3.5-5.0) g/dL Lipase 58 (23-300) U/L Urine Color Urine Appearance (Clear) Urine pH (5.0-8.0) Ur Specific [place] (1.001-1.035) Urine Protein (Negative) Urine Glucose (UA) (Negative) Urine Ketones (Negative) Urine Blood (Negative) Urine Nitrite (Negative) Urine Bilirubin (Negative) Urine Urobilinogen (<2.0) mg/dL Ur Leukocyte Esterase (Negative) 06/06/24 06/06/24 Range/Units 19:00 19:25 WBC (3.8-10.6) k/uL RBC (4.30-5.90) m/uL Hgb (13.0-17.5) gm/dL Hct (39.0-53.0) % MCV (80.0-100.0) fL MCH (25.0-35.0) pg MCHC (31.0-37.0) g/dL RDW (11.5-15.5) % Plt Count (150-450) k/uL MPV Neutrophils % % Lymphocytes % % Monocytes % % Eosinophils % % Basophils % % Neutrophils # (1.3-7.7) k/uL Lymphocytes # (1.0-4.8) k/uL Monocytes # (0-1.0) k/uL Eosinophils # (0-0.7) k/uL Basophils # (0-0.2) k/uL PT (10.0-12.5) sec INR (<1.2) APTT (22.0-30.0) sec Sodium (137-145) mmol/L Potassium (3.5-5.1) mmol/L Chloride (98-107) mmol/L Carbon Dioxide (22-30) mmol/L Anion Gap mmol/L BUN (9-20) mg/dL Creatinine (0.66-1.25) mg/dL Est GFR (CKD-EPI)AfAm (>60 ml/min/1.73 sqM) Est GFR (CKD-EPI)NonAf (>60 ml/min/1.73 sqM) Glucose (74-99) mg/dL Plasma Lactic Acid [place] 1.1 (0.7-2.0) mmol/L Calcium (8.4-10.2) mg/dL Total Bilirubin (0.2-1.3) mg/dL AST (17-59) U/L ALT (4-49) U/L Alkaline Phosphatase (38-126) U/L Total Protein (6.3-8.2) g/dL Albumin (3.5-5.0) g/dL Lipase (23-300) U/L Urine Color Colorless Urine Appearance Clear (Clear) Urine pH 6.0 (5.0-8.0) Ur Specific [place] 1.018 (1.001-1.035) Urine Protein Negative (Negative) Urine Glucose (UA) Negative (Negative) Urine Ketones 1+ H (Negative) Urine Blood Negative (Negative) Urine Nitrite Negative (Negative) Urine Bilirubin Negative (Negative) Urine Urobilinogen <2.0 (<2.0) mg/dL Ur Leukocyte Esterase Negative (Negative) Disposition Clinical Impression: Abdominal pain, Colitis, Leukocytosis Disposition: ADMITTED IP TO THIS HOSP Condition: Stable Is patient prescribed a controlled substance at d/c from ED?: No Referrals: None,Stated [Primary Care Provider] - 1-2 days Time of Disposition: 20:46
[2024-06-06 19:24] LABS: HCT 44.1 % (39.0-53.0); HGB 14.7 gm/dL (13.0-17.5); RBC 5.02 m/uL (4.30-5.90); WBC 24.3 k/uL (3.8-10.6)
[2024-06-06 19:25] LABS: Basophils # (A) 0.1 k/uL (0-0.2); Basophils % (A) 1 %; Eosinophils # (A) 0.2 k/uL (0-0.7); Eosinophils % (A) 1 %; Lymphocytes % (A) 13 %; MCH 29.2 pg (25.0-35.0); MCHC 33.3 g/dL (31.0-37.0); MCV 87.9 fL (80.0-100.0); Mean Platelet Volume 8.7; Monocytes # (A) 0.9 k/uL (0-1.0); Monocytes % (A) 4 %; Neutrophils # (A) 19.9 k/uL (1.3-7.7); Neutrophils % (A) 82 %; Platelet Count 227 k/uL (150-450); RDW 13.4 % (11.5-15.5)
[2024-06-06 19:37] LABS: INR 0.9 (<1.2); Partial Thromboplastin Time 24.6 sec (22.0-30.0); Prothrombin Time 9.9 sec (10.0-12.5)
[2024-06-06] MEDS: ONDANSETRON 4 MG/2 ML VIAL IVP STA (19:49)
[2024-06-06] MEDS: SODIUM CHLORIDE 0.9% 1,000 ML IV STA (19:49)
[2024-06-06] MEDS: HYDROmorphone 1 MG/ML 1 ML SYRINGE IVP STA (19:50)
[2024-06-06 19:59] LABS: ALT 23 U/L (4-49); African American GFR (CKD) 70 (>60 ml/min/1.73 sqM); Albumin 4.3 g/dL (3.5-5.0); Anion Gap 8 mmol/L; Blood Urea Nitrogen 28 mg/dL (9-20); Calcium 8.9 mg/dL (8.4-10.2); Carbon Dioxide 22 mmol/L (22-30); Chloride 109 mmol/L (98-107); Glucose 109 mg/dL (74-99); Lipase 58 U/L (23-300); Non-African American GFR(CKD) 60 (>60 ml/min/1.73 sqM); Sodium 139 mmol/L (137-145); Total Bilirubin 0.4 mg/dL (0.2-1.3)
[2024-06-06 20:11] LABS: AST 30 U/L (17-59); Alkaline Phosphatase 56 U/L (38-126); Potassium 4.5 mmol/L (3.5-5.1)
[2024-06-06 20:15] LABS: Appearance,Urine Clear (Clear); Bilirubin,Urine Negative (Negative); Blood,Urine Negative (Negative); Color,Urine Colorless; Glucose,Urine (UA) Negative (Negative); Ketones,Urine 1+ (Negative); Leukocyte Esterase,Urine Negative (Negative); Nitrite,Urine Negative (Negative); Protein,Urine Negative (Negative); Specific Gravity,Urine 1.018 (1.001-1.035); Urobilinogen,Urine <2.0 mg/dL (<2.0)
--- NOTE | 2024-06-06 20:30 | CT ---
EXAMINATION TYPE: CT abdomen pelvis w con DATE OF EXAM: 06/06/2024 7:58 PM COMPARISON: 07/12/2023 CLINICAL INDICATION: Male, 48 years old with history of abdominal pain, lower; lower abdominal pain f or the last several days. TECHNIQUE: Axial CT abdomen pelvis w con;Sagittal and coronal reformats were created on a separate w orkstation. Contrast used:100ml mL of Isovue 300 with IV Contrast, (none if empty) Oral contrast used: without Oral Contrast (none if empty) CT DLP: 918.3 mGycm, Automated exposure control for dose reduction was used. FINDINGS: LOWER CHEST: Unremarkable ABDOMEN LIVER: Unremarkable GALLBLADDER AND BILE DUCTS: Unremarkable. PANCREAS: Unremarkable. SPLEEN: Unremarkable. ADRENAL GLANDS: Unremarkable. KIDNEYS AND URETERS: No evidence of hydronephrosis or renal calculus. The ureters are unremarkable. PELVIS BLADDER: No evidence for wall thickening or mass given limitations of exam. REPRODUCTIVE: Unremarkable. ABDOMEN & PELVIS STOMACH AND BOWEL: No evidence of bowel obstruction. There is a short segment of sigmoid colon with c ircumferential wall thickening measuring up to 18 mm in thickness. Small bowel is in close proximity to this but thought to be getting reactive inflammation from the large bowel. The appendix is visuali zed at the base felt to be within normal limits PERITONEUM/RETROPERITONEUM: No evidence of pneumoperitoneum or free fluid. VASCULATURE: No evidence of aortic aneurysm. MUSCULOSKELETAL: No acute osseous abnormalities LYMPH NODES: No gross evidence for lymphadenopathy. SOFT TISSUE/ABDOMINAL WALL: Unremarkable IMPRESSION: Sigmoid colitis without evidence of organizing fluid collection or free air at this time. Short-term follow-up in 6-8 weeks recommended to ensure resolution. [facility], , 06/06/2024 8:28 PM
[2024-06-06] MEDS: PIPERACILLIN-TAZOBACTAM 3.375 GM in SODIUM CHLORIDE 0.9% 100 ML IVPB STA (20:33)
[2024-06-06] MEDS ORDERED: NALOXONE 0.4 MG/ML 1 ML VIAL IV PRN (20:41)
[2024-06-06] MEDS ORDERED: ONDANSETRON 4 MG/2 ML VIAL IVP PRN (20:41)
[2024-06-06] MEDS: SODIUM CHLORIDE 0.9% 1,000 ML IV SCH (21:31)
[2024-06-06] MEDS: HYDROmorphone 0.5 MG/0.5 ML SYRINGE IVP PRN (21:45)
[2024-06-06] MEDS: ACETAMINOPHEN TAB 325 MG TAB PO PRN (22:42)
[2024-06-07] MEDS: HYDROmorphone 2 MG/ML 1 ML SYRINGE IVP PRN (00:55)
[2024-06-07] MEDS: PIPERACILLIN-TAZOBACTAM 3.375 GM in SODIUM CHLORIDE 0.9% 100 ML IVPB SCH (04:13)
--- NOTE | 2024-06-07 10:11 | P.HPIM ---
History of Present Illness H&P Date: 06/07/24 History of present illness; patient is a 48-year-old gentleman with past medical history significant for diverticulitis presents the ER because of left lower quad abdominal pain. Patient stated that he was all right yesterday when in the afternoon he started started experiencing left lower quad abdominal pain. Abdominal pain was sudden onset, severe in intensity, intermittent, not associated with any aggravating or relieving factors. Patient denies any nausea or vomiting at the time. There was no complaint of altered bowel movement. Patient denied any recent history of blood in the stools. This abdominal pain was similar to his previous episodes of diverticulitis. Because of abdominal pain, patient presented the ER Initial lab work done in the ER showed WBC 24.3, hemoglobin 14.7, platelet count 227, sodium 139, potassium 4.5, BUN 20, creatinine 1.39, glucose 109, bilirubin 0.4, AST 30, ALT 23 UA negative for infection CT abdominal pelvis done showed sigmoid colitis without evidence of organizing fluid collection or free air at this time Patient admitted to internal medicine service REVIEW OF SYSTEMS: CONSTITUTIONAL: No fever, no malaise, no fatigue. HEENT: No recent visual problems or hearing problems. Denied any sore throat. CARDIOVASCULAR: No chest pain, orthopnea, PND, no palpitations, no syncope. PULMONARY: No shortness of breath, no cough, no hemoptysis. GASTROINTESTINAL: As mentioned above NEUROLOGICAL: No headaches, no weakness, no numbness. HEMATOLOGICAL: Denies any bleeding or petechiae. GENITOURINARY: Denies any burning micturition, frequency, or urgency. MUSCULOSKELETAL/RHEUMATOLOGICAL: Denies any joint pain, swelling, or any muscle pain. ENDOCRINE: Denies any polyuria or polydipsia. The rest of the 14-point review of systems is negative. PHYSICAL EXAMINATION: GENERAL: The patient is alert and oriented x3, not in any acute distress. Well developed, well nourished. HEENT: Pupils are round and equally reacting to light. EOMI. No scleral icterus. No conjunctival pallor. Normocephalic, atraumatic. No pharyngeal erythema. No thyromegaly. CARDIOVASCULAR: S1 and S2 present. No murmurs, rubs, or gallops. PULMONARY: Chest is clear to auscultation, no wheezing or crackles. ABDOMEN: Soft, nontender, nondistended, normoactive bowel sounds. No palpable organomegaly. MUSCULOSKELETAL: No joint swelling or deformity. EXTREMITIES: No cyanosis, clubbing, or pedal edema. NEUROLOGICAL: Gross neurological examination did not reveal any focal deficits. SKIN: No rashes. Assessment and plan Sepsis Acute sigmoid colitis Monitor vital signs Monitor CBC Monitor CMP Ordered antiemetics Ordered pain control with IV Dilaudid Ordered IV fluid Ordered IV Zosyn Consult surgery Consult ID Labs and medication were reviewed.. Continue same treatment. Continue with symptomatic treatment. Resume home medication. Monitor labs and vitals. DVT and GI prophylaxis. Further recommendations as per clinical course of the patient Dictation was produced using [employer] dictation software. please excuse any grammatical, word or spelling errors. Past Medical History Past Medical History: Hypertension Additional Past Medical History / Comment(s): diverticulosis History of Any Multi-Drug Resistant Organisms: None Reported Past Surgical History: No Surgical Hx Reported Past Anesthesia/Blood Transfusion Reactions: No Reported Reaction Past Psychological History: No Psychological Hx Reported Smoking Status: Current every day smoker Past Alcohol Use History: None Reported, Occasional Additional Past Alcohol Use History / Comment(s): SMOKES 1 PPD SINCE AGE 19 Past Drug Use History: None Reported - Past Family History Mother Family Medical History: No Reported History Medications and Allergies Home Medications Medication Instructions Recorded Confirmed Type No Known Home Medications 07/12/23 06/06/24 History Allergies Allergy/AdvReac Type Severity Reaction Status Date / Time codeine Allergy Abdominal Verified 06/06/24 19:43 Pain Physical Exam Vitals: Vital Signs Temp Pulse Pulse Resp BP BP BP 06/07/24 07:00 97.8 F 78 16 135/94 06/07/24 01:37 EDT 99.1 F 78 17 136/90 06/06/24 23:07 88 06/06/24 22:36 100.6 F H 88 20 159/80 06/06/24 21:32 99.4 F 73 16 133/83 06/06/24 20:47 78 18 151/96 06/06/24 18:42 99.5 F 91 16 170/100 Pulse Ox 06/07/24 07:00 99 06/07/24 01:37 EDT 95 06/06/24 23:07 06/06/24 22:36 97 06/06/24 21:32 97 06/06/24 20:47 96 06/06/24 18:42 98 Intake and Output 06/06/24 06/07/24 06/07/24 23:59 06:59 14:59 Other: Voiding Method # Voids Weight Results CBC & Chem 7: 06/06/24 19:00 06/06/24 19:00 Labs: Abnormal Lab Results - Last 24 Hours (Table) 06/06/24 06/06/24 06/06/24 Range/Units 19:00 19:00 19:00 WBC 24.3 H (3.8-10.6) k/uL Neutrophils # 19.9 H (1.3-7.7) k/uL PT 9.9 L (10.0-12.5) sec Chloride 109 H (98-107) mmol/L BUN 28 H (9-20) mg/dL Creatinine 1.39 H (0.66-1.25) mg/dL Glucose 109 H (74-99) mg/dL Urine Ketones (Negative) 06/06/24 Range/Units 19:25 WBC (3.8-10.6) k/uL Neutrophils # (1.3-7.7) k/uL PT (10.0-12.5) sec Chloride (98-107) mmol/L BUN (9-20) mg/dL Creatinine (0.66-1.25) mg/dL Glucose (74-99) mg/dL Urine Ketones 1+ H (Negative) Thrombosis Risk Factor Assmnt - Choose All That Apply Any of the Below Risk Factors Present?: Yes Other Risk Factors: No Other congenital or acquired thrombophilia - If yes, enter type in comment: No
[2024-06-07] MEDS ORDERED: FLUTICASONE NASAL 50MCG/SPRAY 16GM BTL EA NOSTRIL PRN (17:49)
--- NOTE | 2024-06-07 21:40 | P.CONS ---
History of Present Illness - Reason for Consult Consult date: 06/07/24 Colitis Requesting physician: Bahman Kenny - Chief Complaint Abdominal pain x few days - History of Present Illness Patient is a 48-year-old male with a past medical history significant for hypertension diverticulosis currently everyday smoker presenting to the hosp [facility] for evaluation of lower abdominal pain patient symptoms started the day of presentation to the hospital describing the pain to be mostly lower abdominal area quality to sharp and almost 10 out of 10 in severity without any radiation patient did have some nausea but no vomiting did have some diarrhea but no blood or mucus in this increase in the stool has been complaining of some chills, patient presented to the hospital did have a low-grade fever subsequently spiked a temperature 100.6 F patient was not tachycardic hypotensive or hypoxic and no need for supplemental oxygen he did have white count 24.3 with a left shift BUN and creatinine has been mildly elevated liver enzymes are normal urine has been negative patient did have a CT of abdominal pelvis with sigmoid colitis without evidence for organizing fluid collection patient was started on Zosyn infectious disease was consulted for further management of antibiotic therapy Review of Systems Positive point and negatives has been mentioned in the HPI, complete review of systems was performed and all other systems are negative Past Medical History Past Medical History: Hypertension Additional Past Medical History / Comment(s): diverticulosis History of Any Multi-Drug Resistant Organisms: None Reported Past Surgical History: No Surgical Hx Reported Past Anesthesia/Blood Transfusion Reactions: No Reported Reaction Past Psychological History: No Psychological Hx Reported Smoking Status: Current every day smoker Past Alcohol Use History: None Reported, Occasional Additional Past Alcohol Use History / Comment(s): SMOKES 1 PPD SINCE AGE 19 Past Drug Use History: None Reported - Past Family History Mother Family Medical History: No Reported History Medications and Allergies Home Medications Medication Instructions Recorded Confirmed Type No Known Home Medications 07/12/23 06/06/24 History Allergies Allergy/AdvReac Type Severity Reaction Status Date / Time codeine Allergy Abdominal Verified 06/06/24 19:43 Pain Physical Exam Vitals: Vital Signs Temp Pulse Pulse Resp BP BP BP 06/07/24 07:00 97.8 F 78 16 135/94 06/07/24 01:37 EDT 99.1 F 78 17 136/90 06/06/24 23:07 88 06/06/24 22:36 100.6 F H 88 20 159/80 06/06/24 21:32 99.4 F 73 16 133/83 06/06/24 20:47 78 18 151/96 06/06/24 18:42 99.5 F 91 16 170/100 Pulse Ox 06/07/24 07:00 99 06/07/24 01:37 EDT 95 06/06/24 23:07 06/06/24 22:36 97 06/06/24 21:32 97 06/06/24 20:47 96 06/06/24 18:42 98 Intake and Output 06/06/24 06/07/24 06/07/24 23:59 06:59 14:59 Other: Voiding Method # Voids Weight GENERAL DESCRIPTION: Middle-aged male lying in bed, no distress. No tachypnea or accessory muscle of respiration use. HEENT: Shows Pallor , no scleral icterus. Oral mucous membrane is dry. No pharyngeal erythema or thrush NECK: Trachea central, no thyromegaly. LUNGS: Unlabored breathing. Clear to auscultation anteriorly. No wheeze or crackle. HEART: S1, S2, regular rate and rhythm. No loud murmur ABDOMEN: Soft, mild tenderness EXTREMITIES: No edema of feet. SKIN: No rash, no masses palpable. NEUROLOGICAL: The patient is awake, alert, oriented x3, mood and affect normal. Results CBC & Chem 7: 06/06/24 19:00 06/06/24 19:00 Labs: Abnormal Lab Results - Last 24 Hours (Table) 06/06/24 06/06/24 06/06/24 Range/Units 19:00 19:00 19:00 WBC 24.3 H (3.8-10.6) k/uL Neutrophils # 19.9 H (1.3-7.7) k/uL PT 9.9 L (10.0-12.5) sec Chloride 109 H (98-107) mmol/L BUN 28 H (9-20) mg/dL Creatinine 1.39 H (0.66-1.25) mg/dL Glucose 109 H (74-99) mg/dL Urine Ketones (Negative) 06/06/24 Range/Units 19:25 WBC (3.8-10.6) k/uL Neutrophils # (1.3-7.7) k/uL PT (10.0-12.5) sec Chloride (98-107) mmol/L BUN (9-20) mg/dL Creatinine (0.66-1.25) mg/dL Glucose (74-99) mg/dL Urine Ketones 1+ H (Negative) Assessment and Plan (1) Sepsis Current Visit: Yes Status: Acute Code(s): A41.9 - SEPSIS, UNSPECIFIED ORGANISM SNOMED Code(s): 02780645 (2) Leukocytosis Current Visit: Yes Status: Acute Code(s): D72.829 - ELEVATED WHITE BLOOD CELL COUNT, UNSPECIFIED SNOMED Code(s): 448018721 (3) Diverticulitis Current Visit: No Status: Acute Code(s): K57.92 - DVTRCLI OF INTEST, PART UNSP, W/O PERF OR ABSCESS W/O BLEED SNOMED Code(s): 367381496 Plan: 1patient presented to the hospital with sepsis in this patient who did have fever elevated white count source is likely acute colitis/diverticulitis and this patient did have history of diverticulosis and evidence for recurrent diverticulitis did not mention any perforation or abscess we will need for the enteric gram-negative both aerobes anaerobes 2-patient to be advised Zosyn 3.375 g every 8 hour along with bowel rest We will follow on clinical condition and cultures to further adjust medication if needed Thank you for this consultation we will follow the patient along with you Dictation was produced using [employer] dictation software. please excuse any grammatical, word or spelling errors. Time with Patient: Greater than 30
[2024-06-08] MEDS: NICOTINE 14MG/24HR PATCH TRANSDERM SCH (01:22)
[2024-06-08 07:42] VITALS: BP 127/80; PULSE 69; RESP 16; TEMP 98.1
[2024-06-08 08:21] LABS: Basophils # (A) 0.06 X 10*3/uL (0.00-0.10); Basophils % (A) 0.5 %; Eosinophils # (A) 0.11 X 10*3/uL (0.04-0.35); HCT 45.8 % (39.6-50.0); HGB 15.6 g/dL (13.0-17.0); Lymphocytes # (A) 2.22 X 10*3/uL (0.90-5.00); Lymphocytes % (A) 19.9 %; MCH 30.1 pg (27.0-32.0); MCHC 34.1 g/dL (32.0-37.0); MCV 88.2 FL (80.0-97.0); Mean Platelet Volume 11.7 FL (9.5-12.2); Monocytes # (A) 0.86 X 10*3/uL (0.20-1.00); Monocytes % (A) 7.7 %; NRBC Per 100 WBC 0 X 10*3/uL (0.00-0.01); Neutrophils # (A) 7.85 X 10*3/uL (1.80-7.70); Neutrophils % (A) 70.5 %; Platelet Count 252 X 10*3/uL (140-440); RBC 5.19 X 10*6/uL (4.40-5.60); RDW 13.9 % (11.5-14.5); WBC 11.15 X 10*3/uL (4.50-10.00)
[2024-06-08 08:37] LABS: ALT 29 U/L (10-49); AST 25 U/L (14-35); Albumin 4.4 g/dL (3.8-4.9); Albumin/Globulin Ratio 1.69 Ratio (1.60-3.17); Alkaline Phosphatase 73 U/L (41-126); BUN/Creat Ratio 10.36 Ratio (12.00-20.00); Blood Urea Nitrogen 11.4 mg/dL (9.0-27.0); Calcium 9.6 mg/dL (8.7-10.3); Carbon Dioxide 27.2 mmol/L (21.6-31.8); Chloride 102 mmol/L (96-109); Globulin 2.6 g/dL (1.6-3.3); Glucose 86 mg/dL (70-110); Potassium 4.5 mmol/L (3.5-5.5); Sodium 141 mmol/L (135-145); Total Bilirubin 0.4 mg/dL (0.3-1.2)
[2024-06-08] MEDS ORDERED: HYDROcodone/APAP 5-325MG 1 EACH TAB PO PRN (11:15)
--- NOTE | 2024-06-08 11:16 | P.GSCN ---
History of Present Illness Consult date: 06/08/24 History of present illness: CHIEF COMPLAINT: Abdominal pain HISTORY OF PRESENT ILLNESS: This is a 48-year-old male with a known history of diverticulitis. He reports has had about 6 episodes of diverticulitis over the last 10 years. He presents the hospital with left lower quadrant abdominal pain that started on Saturday. He reports no nausea or vomiting. He reports regular bowel movements. CT scan abdomen and pelvis completed had shown sigmoid colitis no fluid collection. Patient did have a low-grade temp on admission and elevated white count. Last colonoscopy was in 2020 and had reported diverticulosis of sigmoid colon. Patient does report he has been hospitalized for his diverticulitis in the past. He is currently on antibiotics. He denies any prior abdominal surgeries. PAST MEDICAL HISTORY: Diverticulitis, hypertension PAST SURGICAL HISTORY: None MEDICATIONS: See below ALLERGIES: See below SOCIAL HISTORY: No illicit drug use. Positive smoker REVIEW OF SYSTEMS: CONSTITUTIONAL: Denies fever or chills. HEENT: Denies blurred vision, vision changes, or eye pain. Denies hemoptysis CARDIOVASCULAR: Denies chest pain or pressure. RESPIRATORY: No shortness of breath. GASTROINTESTINAL: See HPI for pertinent findings HEMATOLOGIC: Denies bleeding disorders. GENITOURINARY: Denies any blood in urine or increased urinary frequency. SKIN: Denies pruitis. Denies rash. PHYSICAL EXAM: VITAL SIGNS: Reviewed GENERAL: Well-developed in no acute distress. HEENT: No sclera icterus. Extraocular movements grossly intact. Moist buccal m [place]. Head is atraumatic, normocephalic. No nasal drainage. ABDOMEN: Soft. Nondistended. Tenderness palpation left lower quadrant and suprapubic area NEUROLOGIC: Alert and oriented. Cranial nerves II through XII grossly intact. LABORATORY DATA: WBC 24.3 down to 11.15 Hgb 15.6 platelets 252 Sodium 141 potassium is 4.5 creatinine 1.39 down to 1.1 IMAGING: CT scan abdomen pelvis reports sigmoid colitis without evidence of organizing fluid collection or free air. Radiology recommends follow-up in 6 to 8 weeks to ensure resolution ASSESSMENT: 1. Acute sigmoid colitis/diverticulitis 2. History of diverticulitis PLAN: -Continue antibiotics -Continue clear liquid diet -Repeat CBC in a.m. -Continue pain management. 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 Signing provider agrees with the documented findings, assessment, and plan of care. Past Medical History Past Medical History: Hypertension Additional Past Medical History / Comment(s): diverticulosis History of Any Multi-Drug Resistant Organisms: None Reported Past Surgical History: No Surgical Hx Reported Past Anesthesia/Blood Transfusion Reactions: No Reported Reaction Past Psychological History: No Psychological Hx Reported Smoking Status: Current every day smoker Past Alcohol Use History: None Reported, Occasional Additional Past Alcohol Use History / Comment(s): SMOKES 1 PPD SINCE AGE 19 Past Drug Use History: None Reported - Past Family History Mother Family Medical History: No Reported History Medications and Allergies Home Medications Medication Instructions Recorded Confirmed Type No Known Home Medications 07/12/23 06/06/24 History Allergies Allergy/AdvReac Type Severity Reaction Status Date / Time codeine Allergy Abdominal Verified 06/06/24 19:43 Pain Surgical - Exam Vital Signs Temp Pulse Resp BP Pulse Ox 99.5 F 91 16 170/100 98 06/06/24 18:42 06/06/24 18:42 06/06/24 18:42 06/06/24 18:42 06/06/24 18:42 Results - Labs 06/08/24 03:41 06/08/24 03:41 Abnormal Lab Results - Last 24 Hours (Table) 06/08/24 06/08/24 Range/Units 03:41 03:41 WBC 11.15 H (4.50-10.00) X 10*3/uL Immature Gran # 0.05 H (0.00-0.04) X 10*3/uL Neutrophils # 7.85 H (1.80-7.70) X 10*3/uL BUN/Creatinine Ratio 10.36 L (12.00-20.00) Ratio Microbiology - Last 24 Hours (Table) 06/06/24 20:23 Blood Culture - Preliminary Blood Diabetes panel 06/08/24 Range/Units 03:41 Sodium 141 (135-145) mmol/L Potassium 4.5 (3.5-5.5) mmol/L Chloride 102 (96-109) mmol/L Carbon Dioxide 27.2 (21.6-31.8) mmol/L BUN 11.4 (9.0-27.0) mg/dL Creatinine 1.1 (0.6-1.5) mg/dL Glucose 86 (70-110) mg/dL Calcium 9.6 (8.7-10.3) mg/dL AST 25 (14-35) U/L ALT 29 (10-49) U/L Alkaline Phosphatase 73 (41-126) U/L Total Protein 7.0 (6.2-8.2) g/dL Albumin 4.4 (3.8-4.9) g/dL Calcium panel 06/08/24 Range/Units 03:41 Calcium 9.6 (8.7-10.3) mg/dL Albumin 4.4 (3.8-4.9) g/dL Pituitary panel 06/08/24 Range/Units 03:41 Sodium 141 (135-145) mmol/L Potassium 4.5 (3.5-5.5) mmol/L Chloride 102 (96-109) mmol/L Carbon Dioxide 27.2 (21.6-31.8) mmol/L BUN 11.4 (9.0-27.0) mg/dL Creatinine 1.1 (0.6-1.5) mg/dL Glucose 86 (70-110) mg/dL Calcium 9.6 (8.7-10.3) mg/dL Adrenal panel 06/08/24 Range/Units 03:41 Sodium 141 (135-145) mmol/L Potassium 4.5 (3.5-5.5) mmol/L Chloride 102 (96-109) mmol/L Carbon Dioxide 27.2 (21.6-31.8) mmol/L BUN 11.4 (9.0-27.0) mg/dL Creatinine 1.1 (0.6-1.5) mg/dL Glucose 86 (70-110) mg/dL Calcium 9.6 (8.7-10.3) mg/dL Total Bilirubin 0.4 (0.3-1.2) mg/dL AST 25 (14-35) U/L ALT 29 (10-49) U/L Alkaline Phosphatase 73 (41-126) U/L Total Protein 7.0 (6.2-8.2) g/dL Albumin 4.4 (3.8-4.9) g/dL
--- NOTE | 2024-06-08 12:17 | P.PN ---
Subjective Progress Note Date: 06/08/24 Principal diagnosis: Reason for follow-up is sigmoid colitis / diverticulitis and leukocytosis Patient is a 48-year-old male with a past medical history significant for hypertension diverticulosis currently everyday smoker presenting to the hospital for evaluation of lower abdominal pain patient has been diagnosed with sepsis secondary to the sigmoid colitis/diverticulitis. On today's evaluation that is 06/08/2024, Patient did have resolution of his fever and is afebrile this morning patient denies having any chest pain shortness of breath or cough, the patient is currently on room air, patient lower abdominal pain has slightly decreased intensity no nausea vomiting has been passing gas but no bowel movement. Patient white count is down to 11.15, creatinine is 1.1 Objective - Vital Signs Vital signs: Vital Signs Temp 98.1 F 06/08/24 07:00 Pulse 69 06/08/24 07:00 Resp 16 06/08/24 07:00 BP 127/80 06/08/24 07:00 Pulse Ox 98 06/08/24 07:00 FiO2 Intake & Output 06/07/24 06/08/24 06/08/24 18:59 06:59 18:59 Intake Total 301 Balance 301 Intake: Oral 301 Other: Voiding Method Toilet # Voids 1 2 - Exam Middle-age male up in the hallway In no distress No tachypnea or accessory muscle respiration Unlabored breathing - Labs CBC & Chem 7: 06/08/24 03:41 06/08/24 03:41 Labs: Abnormal Lab Results - Last 24 Hours (Table) 06/08/24 06/08/24 Range/Units 03:41 03:41 WBC 11.15 H (4.50-10.00) X 10*3/uL Immature Gran # 0.05 H (0.00-0.04) X 10*3/uL Neutrophils # 7.85 H (1.80-7.70) X 10*3/uL BUN/Creatinine Ratio 10.36 L (12.00-20.00) Ratio Microbiology - Last 24 Hours (Table) 06/06/24 20:23 Blood Culture - Preliminary Blood Assessment and Plan (1) Sepsis Current Visit: Yes Status: Acute Code(s): A41.9 - SEPSIS, UNSPECIFIED ORGANISM SNOMED Code(s): 17873946 (2) Leukocytosis Current Visit: Yes Status: Acute Code(s): D72.829 - ELEVATED WHITE BLOOD CELL COUNT, UNSPECIFIED SNOMED Code(s): 704207871 (3) Diverticulitis Current Visit: No Status: Acute Code(s): K57.92 - DVTRCLI OF INTEST, PART UNSP, W/O PERF OR ABSCESS W/O BLEED SNOMED Code(s): 212505312 Plan: 1patient presented to the hospital with sepsis in this patient who did have fever elevated white count source is likely acute colitis/diverticulitis and this patient did have history of diverticulosis and evidence for recurrent diverticulitis did not mention any perforation or abscess we will need for the enteric gram-negative both aerobes anaerobes 2-patient did have resolution of his fever and white count is trending down we will continue the patient on Zosyn along with the bowel rest Dictation was produced using [employer] dictation software. please excuse any grammatical, word or spelling errors. Time with Patient: Less than 30
--- NOTE | 2024-06-09 13:57 | P.DS ---
Providers Date of admission: 06/06/24 20:43 Attending physician: Regan Tejada Consults: 06/06/24 20:41 Consult Physician Routine Consulting Provider: Venkat Solis Consult Reason/Comments: Colitis Do you want consulting provider notified?: Yes 06/07/24 09:09 Consult Physician Routine Consulting Provider: Jerrica Matias Consult Reason/Comments: colitis Do you want consulting provider notified?: Yes Primary care physician: Stated None Hospital Course: Final Diagnosis Sigmoid colitis diverticulitis with sepsis present on admission Leukocytosis secondary to above Mild acute renal insufficiency secondary to dehydration and poor oral intake Hypertension Chronic nicotine use History of diverticulitis in the past Discharge Disposition Stable for discharge home. Patient will continue a course of oral Augmentin for the next 7 days on discharge. Patient to continue with Pepcid for GI prophylaxis while on antibiotic therapy. Patient should follow-up with general surgery to schedule an outpatient colonoscopy after have completed antibiotic therapy. Patient is recommended to establish care with a family doctor on discharge. Hospital Course Patient is a 48-year-old gentleman with past medical history significant for diverticulitis presents the ER because of left lower quad abdominal pain. Patient stated that he was all right yesterday when in the afternoon he started started experiencing left lower quad abdominal pain. Abdominal pain was sudden onset, severe in intensity, intermittent, not associated with any aggravating or relieving factors. Patient denies any nausea or vomiting at the time. There was no complaint of altered bowel movement. Patient denied any recent history of blood in the stools. This abdominal pain was similar to his previous episodes of diverticulitis. Because of abdominal pain, patient presented the ER. Initial lab work done in the ER showed WBC 24.3, hemoglobin 14.7, platelet count 227, sodium 139, potassium 4.5, BUN 20, creatinine 1.39, glucose 109, bilirubin 0.4, AST 30, ALT [address]A negative for infection. CT abdominal pelvis done showed sigmoid colitis without evidence of organizing fluid collection or free air at this time. Patient admitted to internal medicine service, consult placed to general surgery and infectious disease. Patient was started on empiric antibiotic coverage and clear liquid diet. His abdominal discomfort has improved he is feeling hungry and wants to try increased diet. Blood culture has been negative. Blood cell count is significantly improved down to 11.15. His renal function has normalized with hydration. He was evaluated general surgery and ID. As patient wants to discharge home this was discussed with consultations he will complete a course of oral antibiotic therapy and will follow-up in the office with general surgery to schedule an outpatient colonoscopy. Please see medication reconciliation for a list of current medications. Thank you for allowing us to participate in the care of this patient. The impression and plan of care has been dictated by Emma De La Rosa Nurse Practitioner as directed. Dr. Keenan MD I have performed a history and physical examination and medical decision making of this patient, discussed the same with the dictator, and agree with the dictators assessment and plan as written, documented as a scribe. Based on total visit time, I have performed more than 50% of this visit. Patient Condition at Discharge: Stable Plan - Discharge Summary Discharge Rx Participant: No New Discharge Prescriptions: New Amoxic-Pot Clav 875-125Mg [Augmentin 875-125] 1 tab PO BID 7 Days #14 tab Famotidine [Pepcid] 20 mg PO DAILY #14 tablet Ibuprofen [Motrin] 600 mg PO Q6HR PRN #20 tab PRN Reason: Pain Discharge Medication List Amoxic-Pot Clav 875-125Mg [Augmentin 875-125] 1 tab PO BID 7 Days #14 tab 06/08/24 [Rx] Famotidine [Pepcid] 20 mg PO DAILY #14 tablet 06/08/24 [Rx] Ibuprofen [Motrin] 600 mg PO Q6HR PRN #20 tab 06/08/24 [Rx] Follow up Appointment(s)/Referral(s): None,Stated [Primary Care Provider] - 1-2 days Venkat Solis DO [Medical Doctor] - 1 Week Patient Instructions/Handouts: Diverticulitis Diet (DC) Activity/Diet/Wound Care/Special Instructions: Follow up with general surgery to scheduled colonoscopy Continue 7 days of oral antibiotics Diet as tolerated Establish care with a family doctor Discharge/Stand Alone Forms: Area PCPs Discharge Disposition: HOME SELF-CARE
== END 2024-06-08 13:54 | disposition home or self-care (01) ==
LOC: EC 18:32 → 6NMEDSUR 20:43
PROVIDERS: ADMIT Hospitalist; ATTEND Hospitalist
DX: K57.32 Diverticulitis of large intestine without perforation or abscess without bleeding (principal); A41.9 Sepsis, unspecified organism; K52.9 Noninfective gastroenteritis and colitis, unspecified; N28.89 Other specified disorders of kidney and ureter; E86.0 Dehydration; R63.39 Other feeding difficulties; I10 Essential (primary) hypertension; F17.200 Nicotine dependence, unspecified, uncomplicated; Z88.5 Allergy status to narcotic agent
CPT/HCPCS: 96376 ×3; 96365 ×2; 96366 ×2; 96375; 99285; 36415; 80053 ×2; 83605; 83690; 85025 ×2; 85610; 85730; 81003; 87040; 74177; G0378 ×3; S4990; J2543 ×3; J1171 ×5; Q9967